=== PATIENT | male | born 1940 | race Caucasian/White ===

== ENCOUNTER 2017-01-22 16:18 | Inpatient (IN) | payer MEDICARE, BC ==
[~2017-01-22] VITALS: Ht 165.1 cm; Wt 62.0 kg
[2017-01-22] VITALS (13 sets, daily range): BP systolic 120–176; BP diastolic 59–84; PULSE 53–74; RESP 15–18; TEMP 98.3–98.9; O2SAT 95–99
[~2017-01-22 16:18] MED LIST: ALLO300T2 PO; ATOR20TA42 PO; COLC1TAB7 PO; GABA300C3 PO; GLUCTAB PO; LISI-360 PO; MAGN250T13 PO; PIOG15 PO; RIVA20 PO; TYLE3 PO; VERA120T3 PO; VITA100020 IM; VITA20002 PO
[2017-01-22] MEDS ORDERED: VERA120T3 PO (16:55)
[2017-01-22] MEDS ORDERED: LISI-515 PO (16:55)
[2017-01-22] MEDS ORDERED: XARE20TA PO (16:55)
[2017-01-22] MEDS ORDERED: LIPI20TA PO (16:55)
[2017-01-22] MEDS ORDERED: METF1000 PO (16:55)
[2017-01-22] MEDS ORDERED: ALLO300T2 PO (16:55)
[2017-01-22] MEDS ORDERED: ACET300T49 PO (16:55)
[2017-01-22] MEDS ORDERED: ACTO15TA22 PO (16:55)
[2017-01-22] MEDS ORDERED: SODIUM CHLORIDE 0.9% FLUSH 10 ML FLUSH IVF PRN (17:15)
--- NOTE | 2017-01-22 17:31 | PD ---
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 Patient states that he experienced an episode of kaleidoscopic vision on January 10. He states this lasted a few moments and then resolved. 2 days later he began to have a "terrible" global headache that resolved spontaneously. Over the course in the last few days the patient states that he has a headache with accompanying nausea. He also reports developing a tremor in the right hand having some difficulties with gait. He denies recent trauma. On presentation he endorses denies 8/10 frontal headache. He denies vision changes, dizziness. He states that he saw his PCP, Dr. Moeller and had an outpatient MRI today. This revealed bilateral subdural hematomas. He was instructed to report to the ED for further evaluation. PFSH Past Medical History Hx Anticoagulant Therapy: Yes (XARELTO) Cancer: No Cardiovascular Problems: Yes (enlarged left atrium left ventricle hypertrophy) High Cholesterol: Yes Cerebrovascular Accident: Yes (TIA) Diabetes: Yes Patient Takes Glucophage: Yes (METFORMIN) Diminished Hearing: Yes ([place]) Endocrine: Yes Gout: Yes Genitourinary: Yes (mildly enlarged prostate) Headaches: Yes Hepatitis: No Hiatal Hernia: No Hypertension: Yes Immune Disorder: No Medical other: Yes (GOUT ; TIA) Musculoskeletal: Yes (arhtritis neck and back problems) Neurologic: Yes (stroke 2011) Psychiatric: No Reproductive: No Respiratory: No Thyroid Disease: No Past Surgical History Abdominal Surgery: Yes (raquel hernia repair) Appendectomy: Yes Body Medical Devices: titanium plate ,hardware in the neck Eye Surgery: Yes (raquel cataract removal) Neurologic Surgery: Yes (ANTERIOR CERVCIAL FUSION ) Other Surgery: Yes (NECK DISCECTOMY CA/5 2004 AND C3/4 2014) Social History Alcohol Use: No Tobacco Use: No Substance Use: No Allergies-Medications (Allergen,Severity, Reaction): Coded Allergies: aspirin (Unverified Allergy, Severe, nausea and vomiting, 01/22/17) cyclobenzaprine (Unverified Allergy, Severe, hives, 01/22/17) oxycodone (Unverified Allergy, Unknown, 01/22/17) pt states no reaction to percocet Reported Meds & Prescriptions Reported Meds & Active Scripts Active Reported Xarelto (Rivaroxaban) 20 Mg Tab 20 Mg PO DAILY Verapamil (Verapamil HCl) 120 Mg Tab 120 Mg PO DAILY Metformin (Metformin HCl) 1,000 Mg Tab 1,000 Mg PO BIDPC Lisinopril 20 Mg Tab 20 Mg PO DAILY Lipitor (Atorvastatin Calcium) 20 Mg Tab 20 Mg PO HS Allopurinol 300 Mg Tab 300 Mg PO DAILY Actos (Pioglitazone HCl) 15 Mg Tab 15 Mg PO DAILY Acetaminophen-Codeine 300-15 mg Tab 1-2 Tab PO Q6H PRN Review of Systems Except as stated in HPI: all other systems reviewed are Neg Physical Exam Narrative GENERAL: Well-nourished, well-developed pleasant white male with a somewhat flat affect in no acute distress. SKIN: Focused skin assessment warm/dry. HEAD: Normocephalic. Atraumatic. EYES: No scleral icterus. No injection or drainage. PERRLA. EOMI. NECK: Supple, trachea midline. No JVD or lymphadenopathy. CARDIOVASCULAR: Regular rate and rhythm without murmurs, gallops, or rubs. RESPIRATORY: Breath sounds clear and equal bilaterally. No accessory muscle use. GASTROINTESTINAL: Abdomen soft, non-tender, nondistended. Active bowel sounds. MUSCULOSKELETAL: No cyanosis, or edema. NEUROLOGICAL: Awake and alert. Cranial nerves II through XII intact. Motor and sensory grossly within normal limits. Five out of 5 muscle strength in all muscle groups. Normal speech. Pclk-vs-[id number] testing negative bilaterally. No pronator drift. The patient does have a resting tremor in the right hand that resolves with movement. BACK: Nontender without obvious deformity. No CVA tenderness. Data Data Last Documented VS Vital Signs Date Time Temp Pulse Resp B/P (MAP) Pulse Ox O2 Delivery O2 Flow Rate FiO2 01/22/17 18:00 65 18 142/84 (103) 96 Room Air 01/22/17 16:19 98.9 Orders Orders Electrocardiogram (01/22/17 17:05) Prothrombin Time / Inr (Pt) (01/22/17 17:05) Act Partial Throm Time (Ptt) (01/22/17 17:05) Complete Blood Count With Diff (01/22/17 17:05) Comprehensive Metabolic Panel (01/22/17 17:05) Troponin I (01/22/17 17:05) Urinalysis - C+S If Indicated (01/22/17 17:05) Ct Brain W/O Iv Contrast(Rout) (01/22/17 17:05) Chest, Single Ap (01/22/17 17:05) Ecg Monitoring (01/22/17 17:05) Iv Access Insert/Monitor (01/22/17 17:05) Oximetry (01/22/17 17:05) Sodium Chloride 0.9% Flush (Ns Flush) (01/22/17 17:15) Acetaminophen (Tylenol) (01/22/17 17:45) Ondansetron Inj (Zofran Inj) (01/22/17 17:45) Sodium Chlor 0.9% 1000 Ml Inj (Ns 1000 M (01/22/17 18:45) Consult Neurosurgery (01/22/17 ) Labs Laboratory Tests Test 01/22/17 12:31 01/22/17 17:15 Urine Color YELLOW Urine Turbidity CLEAR Urine pH 5.0 Urine Specific [place] 1.022 Urine Protein NEG mg/dL Urine Glucose (UA) NEG mg/dL Urine Ketones TRACE mg/dL Urine Occult Blood NEG Urine Nitrite NEG Urine Bilirubin NEG Urine Urobilinogen LESS THAN 2.0 MG/DL Urine Leukocyte Esterase NEG Urine Hyaline Casts 1 /lpf Microscopic Urinalysis Comment CATH-CULT NOT IND White Blood Count 20.2 TH/MM3 Red Blood Count 4.47 MIL/MM3 Hemoglobin 13.6 GM/DL Hematocrit 40.2 % Mean Corpuscular Volume 90.0 FL Mean Corpuscular Hemoglobin 30.5 PG Mean Corpuscular Hemoglobin Concent 33.9 % Red Cell Distribution Width 14.4 % Platelet Count 144 TH/MM3 Mean Platelet Volume 6.8 FL Neutrophils (%) (Auto) 30.4 % Lymphocytes (%) (Auto) 62.0 % Monocytes (%) (Auto) 6.8 % Eosinophils (%) (Auto) 0.6 % Basophils (%) (Auto) 0.2 % Neutrophils # (Auto) 6.1 TH/MM3 Lymphocytes # (Auto) 12.5 TH/MM3 Monocytes # (Auto) 1.4 TH/MM3 Eosinophils # (Auto) 0.1 TH/MM3 Basophils # (Auto) 0.0 TH/MM3 CBC Comment AUTO DIFF Prothrombin Time 11.9 SEC Prothromb Time International Ratio 1.1 RATIO Activated Partial Thromboplast Time 24.0 SEC Blood Urea Nitrogen 28 MG/DL Creatinine 1.21 MG/DL Random Glucose 123 MG/DL Total Protein 6.9 GM/DL Albumin 4.1 GM/DL Calcium Level 9.3 MG/DL Alkaline Phosphatase 66 U/L Aspartate Amino Transf (AST/SGOT) 15 U/L Alanine Aminotransferase (ALT/SGPT) 18 U/L Total Bilirubin 0.4 MG/DL Sodium Level 136 MEQ/L Potassium Level 4.3 MEQ/L Chloride Level 102 MEQ/L Carbon Dioxide Level 21.6 MEQ/L Anion Gap 12 MEQ/L Estimat Glomerular Filtration Rate 58 ML/MIN Troponin I LESS THAN 0.02 NG/ML MDM Medical Decision Making Medical Screen Exam Complete: Yes Emergency Medical Condition: Yes Differential Diagnosis TIA versus CVA versus ICH versus metabolic derangement versus other Narrative Course 76-year-old male with PMH of DM, HTN, CVA, HLD, 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 Patient states that he experienced an episode of kaleidoscopic vision on January 10. He states this lasted a few moments and then resolved. 2 days later he began to have a "terrible" global headache that resolved spontaneously. Over the course in the last few days the patient states that he has a 8/10 frontal headache with accompanying nausea. He also reports developing a tremor in the right hand and having some difficulties with gait. He denies trauma, vision changes, dizziness. He states that he saw his PCP and had an outpatient MRI today. This revealed bilateral subdural hematomas. He was instructed to report to the ED for further evaluation. Vitals reviewed. On exam the patient is alert and oriented. There are no focal neuro deficits. He does have a resting tremor in the right hand that resolves with movement. Chest clear to auscultation bilaterally. No lower extremity edema. IV was established. Patient was administered 650 mg Tylenol, 4 mg Zofran by mouth and 1 L normal saline IV. EKG rate 67, sinus rhythm with PVCs. AR interval 184, QRS 98, QTC 423 ms. Normal axis. Nonspecific T-wave abnormality. Reviewed by Dr. Warren Cardiac enzymes negative 1. CXR with hypoinflation and minimal bilateral basilar atelectasis. CBC: WBC 20.2, 62% lymphocytes. (Patient's reports last white count was 18.) Hemoglobin 13.6. Platelets 144. INR 1.1. CMP: BUN 28, creatinine 1.21 UA: No culture indicated. CT brain: Acute on chronic bilateral subdural hematomas observed. No significant volume of acute blood overlies the right temporal lobe. The acute component measures 3 mm in thickness. A more chronic subdural collections are seen more anteriorly overlying the frontal lobes and measure 13 mm on the right and 14 mm on the left in thickness. There is some underlying atrophy. No mass or acute infarction. Ventricles remain patent. The calvarium is intact. I spoke with Dr. Akins who does not think surgical intervention is needed at this time. We'll admit the patient to the ICU under the medicine service. I spoke with the patient and his regarding the results of the workup and they are agreeable to admission. The patient's son-in-law is an emergency room physician in [place] and the patient would like to keep him apprised of any developments. Dr. Aj Castro phone: [phone]. Dr. Warren spoke with Dr. Castro by phone regarding the findings in the ED. I spoke with Dr. Calvin who agrees to accept the patient to the medicine service. Please see medicine notes for disposition. Park Bonilla Jan 22, 2017 17:31
--- NOTE | 2017-01-22 17:38 | RADRPT ---
EXAM DATE/TIME: 01/22/2017 17:14 [facility] COMPARISON: No previous studies available for comparison. INDICATIONS : Syncope. Weakness. MEDICAL HISTORY : None. SURGICAL HISTORY : None. ENCOUNTER: Initial ACUITY: 1 day PAIN SCORE: 6/10 LOCATION: Bilateral chest FINDINGS: A single view of the chest demonstrates the lungs to be symmetrically, but under aerated without evid ence of mass, infiltrate or effusion. Minimal bibasilar atelectatic changes The cardiomediastinal co ntours are unremarkable. Osseous structures are intact with some degenerative spurring of the dorsal spine. CONCLUSION: Hypoinflation with minimal bibasilar atelectatic changes. Maury Pizano MD on January 22, 2017 at 17:36 Board Certified Radiologist. This report was verified electronically.
[2017-01-22] MEDS ORDERED: ONDANSETRON HCL 4 MG/2 ML VIAL IV PUSH ONE (17:45)
[2017-01-22] MEDS ORDERED: ACETAMINOPHEN 325 MG TAB PO ONE (17:45)
[2017-01-22 18:04] LABS: AUTOMATED NEUTROPHIL # 6.1 TH/MM3 (1.8-7.7); BASOPHIL % 0.2 % (0.0-2.0); EOSINOPHIL # 0.1 TH/MM3 (0-0.4); EOSINOPHIL % 0.6 % (0.0-4.0); HEMATOCRIT 40.2 % (39.0-51.0); LYMPHOCYTE # 12.5 TH/MM3 (1.0-4.8); MEAN CORPUSCULAR HEMOGLOBIN 30.5 PG (27.0-34.0); MEAN CORPUSCULAR HGB CONC 33.9 % (32.0-36.0); MONO % 6.8 % (0.0-8.0); NEUT % 30.4 % (16.0-70.0); PLATELET COUNT 144 TH/MM3 (150-450); RED BLOOD COUNT 4.47 MIL/MM3 (4.50-5.90); RED CELL DISTRIBUTION WIDTH 14.4 % (11.6-17.2); WHITE BLOOD COUNT 20.2 TH/MM3 (4.0-11.0)
[2017-01-22 18:08] LABS: BLOOD, URINE NEG (NEG); GLUCOSE,URINE NEG (NEG); HYALINE CAST, URINE 1 /lpf (RARE); KETONE, URINE TRACE mg/dL (NEG); NITRITE,URINE NEG (NEG); URINE COLOR YELLOW (YELLW/STRAW)
--- NOTE | 2017-01-22 18:08 | RADRPT ---
EXAM DATE/TIME: 01/22/2017 17:45 This report includes an Addendum and supersedes previous reports for this exam. [facility] COMPARISON: No previous studies available for comparison. INDICATIONS : Subdural hematoma per outpatient MRI; patient complains of headache. RADIATION DOSE: 56.35 CTDIvol (mGy) MEDICAL HISTORY : Cerebrovascular disease. Cardiovascular disease Hypertension.Diabetes SURGICAL HISTORY : Angioplasty. Hernia repair ENCOUNTER: Initial ACUITY: 1 day PAIN SCALE: 6/10 LOCATION: cranial TECHNIQUE: Multiple contiguous axial images were obtained of the head. Using automated exposure control and adj ustment of the mA and/or kV according to patient size, radiation dose was kept as low as reasonably a chievable to obtain optimal diagnostic quality images. DICOM format image data is available electro nically for review and comparison. FINDINGS: Acute on chronic bilateral subdural hematomas observed. No significant volume of acute blood overlies the right temporal lobe. The acute component measures 3 mm in thickness. A more chronic subdural col lections are seen more anteriorly overlying the frontal lobes and measure 13 mm on the right and 40 m m on the left in thickness. There is some underlying atrophy. No mass or acute infarction. Ventricles remain patent. The calvarium is intact. CONCLUSION: 1. Acute on chronic bilateral subdural hematomas as detailed above. No midline shift or herniation. Joel Maciel Jr., MD on January 22, 2017 at 18:04 Board Certified Radiologist. This report was verified electronically. ADDENDUM: There is a typographical error in the above report. The chronic subdural collection on the left measu res 14 mm not 40 mm. oJel Maciel Jr., MD on January 22, 2017 at 19:22 Board Certified Radiologist. This report was verified electronically.
[2017-01-22 18:12] LABS: INTERNATIONAL NORMALIZED RATIO 1.1 RATIO; PROTHROMBIN TIME - PATIENT 11.9 SEC (9.8-11.6)
[2017-01-22 18:13] LABS: HEMO FLAGS AUTO DIFF
[2017-01-22 18:15] LABS: COMMENT (UR) CATH-CULT NOT IND; CULTURE IF INDICATED CATH CULTURE NOT IND
[2017-01-22 18:26] LABS: ALT (GPT) 18 U/L (12-78); ANION GAP 12 MEQ/L (5-15); AST (GOT) 15 U/L (15-37); BICARBONATE 21.6 MEQ/L (21.0-32.0); BLOOD UREA NITROGEN 28 MG/DL (7-18); CHLORIDE 102 MEQ/L (98-107); GLOMERULAR FILTRATION RATE 58 ML/MIN (>89); POTASSIUM 4.3 MEQ/L (3.5-5.1); SODIUM (NA) 136 MEQ/L (136-145)
[2017-01-22 18:31] LABS: ALKALINE PHOSPHATASE 66 U/L (45-117); TOTAL BILIRUBIN ADULT 0.4 MG/DL (0.2-1.0)
[2017-01-22] MEDS ORDERED: SODIUM CHLOR 0.9% 1000 ML INJ 1,000 ML IV ONE (18:45)
[2017-01-22] MEDS ORDERED: SODIUM CHLORIDE 0.9% FLUSH 10 ML FLUSH IV FLUSH PRN ×2 (19:00→19:30)
[2017-01-22] MEDS ORDERED: NALOXONE HCL 0.4 MG/ML AMP IV PUSH PRN (19:00)
[2017-01-22] MEDS ORDERED: MISCELLANEOUS NURSING INFORMATION XX SCH (19:30)
[2017-01-22] MEDS ORDERED: GLUCAGON 1 MG/ML VIAL OTHER PRN (19:30)
[2017-01-22] MEDS ORDERED: CHLORHEXIDINE GLUCONATE 2 % 1 PACK (2 CLOTHS) TOP PRN (19:30)
[2017-01-22] MEDS ORDERED: DEXTROSE 50% IN WATER 50 ML VIAL(D50) IV PUSH PRN (19:30)
[2017-01-22] MEDS ORDERED: ACETAMINOPHEN 325 MG TAB PO PRN (19:30)
[2017-01-22] MEDS ORDERED: BISACODYL 10 MG SUPP RECTAL PRN (19:30)
[2017-01-22] MEDS ORDERED: MAGNESIUM HYDROXIDE SUSP 30 ML CUP PO PRN (19:30)
[2017-01-22] MEDS ORDERED: LACTULOSE SYRUP 20 GM/30 ML CUP PO PRN (19:30)
--- NOTE | 2017-01-22 19:31 | HHI.HP ---
HPI Service [facility] Primary Care Physician Pedro Moeller MD Admission Diagnosis acute on chronic bilateral subdural hematoma Diagnoses: (1) Subdural hematoma Diagnosis: Principal (2) Thrombocytopenia Diagnosis: Principal (3) Leukocytosis Diagnosis: Principal (4) HTN (hypertension) Diagnosis: Principal (5) Dehydration Diagnosis: Principal (6) DM (diabetes mellitus) Diagnosis: Principal Travel History International Travel<30 Days: No Contact w/Intl Traveler <30 Da: No Traveled to Known Affected Are: No History of Present Illness This is a 76-year-old male with a PMH of HTN, DM, h/o CVA on Xarelto and CLL who was sent to the ER by PCP secondary to outpatient imaging showing bilateral Subdural Hematoma. Per , pt was recently started on antibiotics for Prostatitis, states Son is an ER physician and noted pt to be more confused today, therefore urged pt be seen by PCP. Reports chronic headache for several months, no nausea/vomiting or vision changes. On arrival, BP 136/78, HR 74, O2 sat 98% on RA, Afebrile. WBC 20.2. Platelets 144. GFR 58. BUN 28. INR 1.1. UA negative. CXR with hypoinflation. CT Head with acute on chronic spiral bilateral subdural hematomas, no midline shift or herniation. S/p eval by Dr. Akins w/ NxSx, hematomas amenable to drainage, however family would like to continue w/ conservative management at this time. Review of Systems Except as stated in HPI: all other systems reviewed are Neg ROS: 14 point review of systems otherwise negative. Past Family Social History Past Medical History PMH: HTN, DM, h/o CVA on Xarelto and CLL Past Surgical History PAST SURGICAL HISTORY: Bilateral Hernia Repair, Bilateral Cataract Surgery, Anterior Cervical fusion Allergies: Coded Allergies: aspirin (Unverified Allergy, Severe, nausea and vomiting, 01/22/17) cyclobenzaprine (Unverified Allergy, Severe, hives, 01/22/17) oxycodone (Unverified Allergy, Unknown, 01/22/17) pt states no reaction to percocet Family History PAST FAMILY HISTORY: Reviewed. No h/o DM or CAD Social History PAST SOCIAL HISTORY: Negative for all, tobacco or drugs. Physical Exam Vital Signs Vital Signs Date Time Temp Pulse Resp B/P (MAP) Pulse Ox O2 Delivery O2 Flow Rate FiO2 01/22/17 18:00 65 18 142/84 (103) 96 Room Air 01/22/17 17:28 99 Room Air 01/22/17 16:45 66 18 97 Room Air 01/22/17 16:19 98.9 67 15 136/73 (94) 98 Physical Exam PE: GENERAL: Very pleasant middle-aged white male in no acute distress. at bedside. HEENT: PERRLA, EOMI. No scleral icterus or conjunctival pallor. No lid lag or facial droop. CARDIOVASCULAR: Regular rate and rhythm. No obvious murmurs to auscultation. No chest tenderness to palpation. RESPIRATORY: No obvious rhonchi or wheezing. Clear to auscultation. Breath sounds equal bilaterally. GASTROINTESTINAL: Abdomen soft, non-tender, nondistended. BS normal. MUSCULOSKELETAL: Extremities without clubbing, cyanosis, or edema. No obvious deformities. NEUROLOGICAL: Awake, alert and oriented x4. No focal neurologic deficits. Moving both upper and lower extremities spontaneously. Laboratory Laboratory Tests Test 01/22/17 12:31 01/22/17 17:15 Urine Color YELLOW Urine Turbidity CLEAR Urine pH 5.0 Urine Specific [place] 1.022 Urine Protein NEG Urine Glucose (UA) NEG Urine Ketones TRACE Urine Occult Blood NEG Urine Nitrite NEG Urine Bilirubin NEG Urine Urobilinogen LESS THAN 2.0 Urine Leukocyte Esterase NEG Urine Hyaline Casts 1 Microscopic Urinalysis Comment CATH-CULT NOT IND White Blood Count 20.2 Red Blood Count 4.47 Hemoglobin 13.6 Hematocrit 40.2 Mean Corpuscular Volume 90.0 Mean Corpuscular Hemoglobin 30.5 Mean Corpuscular Hemoglobin Concent 33.9 Red Cell Distribution Width 14.4 Platelet Count 144 Mean Platelet Volume 6.8 Neutrophils (%) (Auto) 30.4 Lymphocytes (%) (Auto) 62.0 Monocytes (%) (Auto) 6.8 Eosinophils (%) (Auto) 0.6 Basophils (%) (Auto) 0.2 Neutrophils # (Auto) 6.1 Lymphocytes # (Auto) 12.5 Monocytes # (Auto) 1.4 Eosinophils # (Auto) 0.1 Basophils # (Auto) 0.0 CBC Comment AUTO DIFF Prothrombin Time 11.9 Prothromb Time International Ratio 1.1 Activated Partial Thromboplast Time 24.0 Blood Urea Nitrogen 28 Creatinine 1.21 Random Glucose 123 Total Protein 6.9 Albumin 4.1 Calcium Level 9.3 Alkaline Phosphatase 66 Aspartate Amino Transf (AST/SGOT) 15 Alanine Aminotransferase (ALT/SGPT) 18 Total Bilirubin 0.4 Sodium Level 136 Potassium Level 4.3 Chloride Level 102 Carbon Dioxide Level 21.6 Anion Gap 12 Estimat Glomerular Filtration Rate 58 Troponin I LESS THAN 0.02 Result Diagram: 01/22/17171401/22/171714 Caprincarlos VTE Risk Assessment Caprini VTE Risk Assessment: No/Low Risk (score <= 1) VTE Pharm Contraindication: Hemorrhage Caprini Risk Assessment Model Point Value = 1 Point Value = 2 Point Value = 3 Point Value = 5 Age 41-60 Minor surgery BMI > 25 kg/m2 Swollen legs Varicose veins or History of unexplained or recurrent spontaneous Oral contraceptives or hormone replacement Sepsis (< 1 month) Serious lung disease, including pneumonia (< 1 month) Abnormal pulmonary function Acute myocardial infarction Congestive heart failure (< 1 month) History of inflammatory bowel disease Medical patient at bed rest Age 61-74 Arthroscopic surgery Major open surgery (> 45 min) Laparoscopic surgery (> 45 min) Malignancy Confined to bed (> 72 hours) Immobilizing plaster cast Central venous access Age >= 75 History of VTE Family history of VTE Factor V Leiden Prothrombin [id number] Lupus anticoagulant Anticardiolipin antibodies Elevated serum homocysteine Heparin-induced thrombocytopenia Other congenital or acquired thrombophilia Stroke (< 1 month) Elective arthroplasty Hip, pelvis, or leg fracture Acute spinal cord injury (< 1 month) Prophylaxis Regimen Total Risk Factor Score Risk Level Prophylaxis Regimen 0-1 Low Early ambulation 2 Moderate Order ONE of the following: *Sequential Compression Device (SCD) *Heparin 5000 units SQ BID 3-4 Higher Order ONE of the following medications: *Heparin 5000 units SQ TID *Enoxaparin/Lovenox 40 mg SQ daily (WT < 150 kg, CrCl > 30 mL/min) *Enoxaparin/Lovenox 30 mg SQ daily (WT < 150 kg, CrCl > 10-29 mL/min) *Enoxaparin/Lovenox 30 mg SQ BID (WT < 150 kg, CrCl > 30 mL/min) AND/OR *Sequential Compression Device (SCD) 5 or more Highest Order ONE of the following medications: *Heparin 5000 units SQ TID (Preferred with Epidurals) *Enoxaparin/Lovenox 40 mg SQ daily (WT < 150 kg, CrCl > 30 mL/min) *Enoxaparin/Lovenox 30 mg SQ daily (WT < 150 kg, CrCl > 10-29 mL/min) *Enoxaparin/Lovenox 30 mg SQ BID (WT < 150 kg, CrCl > 30 mL/min) AND *Sequential Compression Device (SCD) Assessment and Plan Problem List: (1) Subdural hematoma ICD Code: I62.00 - Nontraumatic subdural hemorrhage, unspecified (2) Thrombocytopenia ICD Code: D69.6 - Thrombocytopenia, unspecified (3) Leukocytosis ICD Code: D72.829 - Elevated white blood cell count, unspecified (4) Dehydration ICD Code: E86.0 - Dehydration (5) HTN (hypertension) ICD Code: I10 - Essential (primary) hypertension (6) DM (diabetes mellitus) ICD Code: E11.9 - Type 2 diabetes mellitus without complications Assessment and Plan A/P: 1. Subdural Hematoma: Bilateral. Subacute/chronic. Spontaneous, no h/o trauma/injury. On Xarelto for h/o CVA. S/p eval by Dr. Akins w/ NxSx, hematomas amenable to drainage, however pt/ wish to discuss intervention w/ Son who is ER physician, conservative management for now. Admit to ICU for close monitoring, Neuro Check q2h. Hold Xarelto. 1u FFP. Repeat CT Head in am. 2. HTN: Goal BP <150 systolic in light of ICH. S/p Lopressor in ER w/ significant bradycardia, Hydralazine prn for Systolic >150 3. Leukocytosis: WBC 20.2, no previous labs for comparison, no signs of infection, likely secondary to recent diagnosis of CLL combined w/ ICH 4. Dehydration: GFR 58, BUN 28. IVF for hydration, repeat labs in am. 5. Thrombocytopenia: Platelets 144, no previous labs for comparison, in light of ICH and anticoagulation will give FFP as above. Repeat labs in am. 6. DM: Sliding scale w/ Accu-Cheks. 7. DVT Prophylaxis: Pharmacologic contraindication secondary to ICH 8. Social work for d/c planning as needed. 9. Case discussed w/ ER physician at length. Physician Certification 2 Midnight Certification Type: Admission for Inpatient Services Order for Inpatient Services The services are ordered in accordance with Medicare regulations or non- Medicare payer requirements, as applicable. In the case of services not specified as inpatient-only, they are appropriately provided as inpatient services in accordance with the 2-midnight benchmark. Estimated LOS (days): 2 days is the estimated time the patient will need to remain in the hospital, assuming treatment plan goals are met and no additional complications. Post-Hospital Plan: Not yet determined Beth White MD Jan 22, 2017 19:31
[2017-01-22 19:40] LABS: NEUTROPHIL # MANUAL DIFF 8.1 TH/MM3 (1.8-7.7); POLYS (SEG NEUTROPHILS) 39 % (16-70); PROMYELOCYTES 1 % (0-0); WBC DIFF SAMPLE 100
[2017-01-22 19:41] LABS: PLATELET ESTIMATE SMEAR LOW (NORMAL); PLATELET MORPHOLOGY NORMAL (NORMAL); SCAN/DIFF FINAL DIFF MANUAL
[2017-01-22] MEDS ORDERED: METOPROLOL TARTRATE 5 MG/5 ML VIAL IV PUSH PRN (19:45)
[2017-01-22] MEDS ORDERED: METOPROLOL TARTRATE 5 MG/5 ML VIAL IV PUSH ONE (19:45)
--- NOTE | 2017-01-22 20:04 | MB ---
cc: CHRIS HU M.D. DATE OF CONSULTATION: 01/22/2017. REQUESTING PHYSICIAN: Dr. Calvin. HISTORY OF PRESENT ILLNESS: This is a 76-year-old gentleman with significant past medical history of diabetes, hypertension, recent CVA who has been on Xarelto since the diagnosis of the CVA. He has a longstanding history of chronic headaches but over the past couple weeks he has noted worsening of his headache which is now more global than cervical-occipital. 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 Significant effacement of the frontal parenchyma but no midline shift. Since admission to the emergency room, the patient notes his headache has improved with medication. Other than headache, he has also noted some scintillating visual changes and dizziness. No motor or sensory loss or dysfunction in the upper or lower extremities. PAST MEDICAL HISTORY: The patient's past medical history is as above: 1. Diabetes. 2. Hypertension. 3. CVA. 4. Hyperlipidemia. MEDICATIONS: 1. Xarelto. 2. Verapamil. 3. Metformin. 4. Lisinopril. 5. Lipitor. 6. Allopurinol. 7. Actos. 8. Lortab. ALLERGIES: 1. CYCLOBENZAPRINE. 2. OXYCODONE. 3. ASPIRIN. HABITS: The patient does not smoke. He does not use alcohol significantly. REVIEW OF SYSTEMS: Pertinent as stated in the history of present illness and otherwise negative. PHYSICAL EXAMINATION: GENERAL: A well-developed, well-nourished gentleman who is awake, alert and in no acute distress. HEAD, EYES, EARS, NOSE, THROAT: Head is normocephalic and atraumatic. Pupils equal, round and reactive to light. Extraocular movements are intact. NECK: The neck is supple. Full range of motion. No posterior tenderness. NEUROLOGICAL EXAMINATION: The patient is alert, awake, oriented times three. Mental status is normal. Cranial nerves II through XII are intact. Motor function is 5/5 upper and lower extremities without drift. Sensory intact to primary modalities. Reflexes are hypoactive but symmetric. Gait was not tested. ASSESSMENT: Bilateral chronic subdural hematomas as complication of Xarelto use. PLAN: 1. Xarelto will be discontinued and the patient will be admitted to the intensive care unit for observation. 2. I spoke with the patient and his and have indicated to them that it is likely he will need rachael hole drainage of the collections as they are fairly large; however, we can give the collections some time to possibly resolve if that is their wish. For now, they wish to proceed conservatively. Will follow the patient closely. MD FRANSICO Ruiz/SHAHRZAD /7:30 PM /7:58 PM
[2017-01-22] MEDS ORDERED: SODIUM CHLOR 0.9% 250 ML INJ 250 ML IV ONE (20:45)
[2017-01-22] MEDS: hydrALAZINE HCL 20 MG/ML VIAL IV PUSH PRN (20:56)
[2017-01-22] MEDS ORDERED: SODIUM CHLORIDE 0.9% FLUSH 10 ML FLUSH IV FLUSH SCH (21:00)
[2017-01-22] MEDS: INSULIN ASPART SUPPLEMENTAL SCALE SQ SCH (21:00)
[2017-01-22] MEDS: DOCUSATE SODIUM 50 MG/SENNA 8.6 MG TAB PO SCH (21:37)
[2017-01-22] MEDS: SODIUM CHLORIDE 0.9% FLUSH 10 ML FLUSH IV FLUSH SCH (21:37)
[2017-01-22] MEDS: ATORVASTATIN 20 MG TAB PO SCH (21:37)
[2017-01-22] MEDS: ONDANSETRON HCL 4 MG/2 ML VIAL IVP PRN (21:45)
[2017-01-22] MEDS: MORPHINE SULFATE 4 MG/ML INJ IV PUSH PRN (21:45)
[2017-01-23] VITALS (13 sets, daily range): BP systolic 102–146; BP diastolic 55–69; PULSE 43–75; RESP 13–19; TEMP 97.2–98.3; O2SAT 96–97
[2017-01-23 06:07] LABS: INTERNATIONAL NORMALIZED RATIO 1.1 RATIO; PROTHROMBIN TIME - PATIENT 12.6 SEC (9.8-11.6)
[2017-01-23 06:16] LABS: ALT (GPT) 18 U/L (12-78); ANION GAP 8 MEQ/L (5-15); AST (GOT) 14 U/L (15-37); BICARBONATE 25.8 MEQ/L (21.0-32.0); BLOOD UREA NITROGEN 22 MG/DL (7-18); CHLORIDE 104 MEQ/L (98-107); GLOMERULAR FILTRATION RATE 73 ML/MIN (>89); POTASSIUM 3.9 MEQ/L (3.5-5.1); SODIUM (NA) 138 MEQ/L (136-145)
--- NOTE | 2017-01-23 06:18 | RADRPT ---
EXAM DATE/TIME: 01/23/2017 05:59 [facility] COMPARISON: CT BRAIN W/O CONTRAST, January 22, 2017, 17:45. INDICATIONS : Follow up subdural hematomas. RADIATION DOSE: 56.35 CTDIvol (mGy) MEDICAL HISTORY : Cerebrovascular disease. Cardiovascular disease Hypertension.Diabetes SURGICAL HISTORY : Hernia repair ENCOUNTER: Subsequent ACUITY: 1 day PAIN SCALE: Non-responsive LOCATION: cranial TECHNIQUE: Multiple contiguous axial images were obtained of the head. Using automated exposure control and adj ustment of the mA and/or kV according to patient size, radiation dose was kept as low as reasonably a chievable to obtain optimal diagnostic quality images. DICOM format image data is available electro nically for review and comparison. FINDINGS: Bifrontal subdural hygromas are unchanged measuring maximally 10 mm in thickness. There is no signifi cant mass effect or midline shift. There is hyperdensity layering in the dependent portion of the col lections characteristic of acute hemorrhage. No intraparenchymal contusion is identified. Posterior f cristal structures are unremarkable. CONCLUSION: 1. Stable acute and chronic subdural hematomas. Milad Anaya MD on January 23, 2017 at 6:14 Board Certified Radiologist. This report was verified electronically.
[2017-01-23 06:19] LABS: ALKALINE PHOSPHATASE 57 U/L (45-117); TOTAL BILIRUBIN ADULT 0.5 MG/DL (0.2-1.0)
[2017-01-23 06:22] LABS: HEMATOCRIT 35.8 % (39.0-51.0); MEAN CELL VOLUME 88.9 FL (80.0-100.0); MEAN CORPUSCULAR HEMOGLOBIN 30.6 PG (27.0-34.0); MEAN CORPUSCULAR HGB CONC 34.4 % (32.0-36.0); PLATELET COUNT 135 TH/MM3 (150-450); RED BLOOD COUNT 4.02 MIL/MM3 (4.50-5.90); RED CELL DISTRIBUTION WIDTH 14.5 % (11.6-17.2); WHITE BLOOD COUNT 16.2 TH/MM3 (4.0-11.0)
[2017-01-23 06:57] LABS: HEMO FLAGS AUTO DIFF
[2017-01-23] MEDS: INSULIN ASPART SUPPLEMENTAL SCALE SQ SCH ×4 (08:00→20:38)
--- NOTE | 2017-01-23 08:25 | HHI.PR ---
Subjective Remarks Follow up subdural hematoma, dehydration. The patient has no complaints at this time. Denies headache currently. No numbness/weakness/tingling of his extremities. No vision changes. No chest pain or dyspnea. Objective Vitals Vital Signs Date Time Temp Pulse Resp B/P (MAP) Pulse Ox O2 Delivery O2 Flow Rate FiO2 01/23/17 06:00 53 01/23/17 04:00 53 01/23/17 03:00 98.0 53 13 110/55 (73) 96 01/23/17 02:00 75 01/23/17 02:00 49 01/23/17 00:00 98.2 65 14 119/56 (77) 96 01/22/17 23:49 71 16 120/60 (80) 96 01/22/17 22:45 71 16 120/67 (84) 95 Room Air 01/22/17 22:31 98.6 70 16 126/64 95 01/22/17 22:18 98.6 74 16 131/62 95 01/22/17 22:06 73 16 159/74 (102) 95 Room Air 01/22/17 22:00 71 16 170/59 (96) 95 Room Air 01/22/17 21:07 98.3 74 16 163/78 (106) 97 Room Air 01/22/17 20:26 53 16 162/79 (106) 97 Room Air 01/22/17 20:15 62 16 165/79 (107) 98 Room Air 01/22/17 19:29 74 16 176/78 (110) 98 Room Air 01/22/17 18:00 65 18 142/84 (103) 96 Room Air 01/22/17 17:28 99 Room Air 01/22/17 16:45 66 18 97 Room Air 01/22/17 16:19 98.9 67 15 136/73 (94) 98 I/O 01/22/17 01/22/17 01/22/17 01/23/17 01/23/17 01/23/17 07:00 15:00 23:00 07:00 15:00 23:00 Intake Total 1259 ml Output Total 600 ml Balance 1259 ml -600 ml Intake IV Total 1025 ml FFP 209 ml Blood Product IV Normal Saline Flush 25 ml Output Urine Total 600 ml # Voids 1 2 Result Diagram: 01/23/1751901/23/17 0520 Imaging Last Impressions Head CT 01/23/17 0600 Signed Impressions: Service Date/Time: Monday, January 23, 2017 05:59 - CONCLUSION: 1. Stable acute and chronic subdural hematomas. Milad Anaya MD Chest X-Ray 01/22/17 1705 Signed Impressions: Service Date/Time: Sunday, January 22, 2017 17:14 - CONCLUSION: Hypoinflation with minimal bibasilar atelectatic changes. Maury Pizano MD Objective Remarks General: Elderly male in no acute distress. Heart: Regular rate and rhythm. No murmur. Lungs: Clear to auscultation bilaterally. No wheezes, rales, or rhonchi. Breathing is nonlabored. Abdomen: Soft, nontender, nondistended. Extremities: No lower extremity edema. SCDs. Psych: Alert and oriented. Procedures None Urinary Catheter: No Vascular Central Line Catheter: No A/P Problem List: (1) Subdural hematoma ICD Code: I62.00 - Nontraumatic subdural hemorrhage, unspecified (2) Thrombocytopenia ICD Code: D69.6 - Thrombocytopenia, unspecified (3) Leukocytosis ICD Code: D72.829 - Elevated white blood cell count, unspecified (4) Dehydration ICD Code: E86.0 - Dehydration (5) HTN (hypertension) ICD Code: I10 - Essential (primary) hypertension (6) DM (diabetes mellitus) ICD Code: E11.9 - Type 2 diabetes mellitus without complications Assessment and Plan 1. Subdural hematoma: Bilateral. Subacute/chronic. No history of trauma. Patient is on Xarelto for history of CVA. This is now on hold. Appreciate neurosurgery recommendations. The hematomas are amenable to drainage, but the patient and his wish to continue conservative management at this time. Monitor in ICU. Continue neuro checks. 2. Hypertension: Blood pressure is much improved today. Patient did receive Lopressor in the ER and developed significant bradycardia. Hydralazine as needed. Goal blood pressure less than 150 systolic. 3. Dehydration: Improving. Restart IV fluids. Monitor BUN and creatinine. 4. Leukocytosis: Likely secondary to recent diagnosis of CLL. 5. Thrombocytopenia: Monitor platelets. Patient was given 1 unit of FFP. 6. Diabetes mellitus: Monitor Accu-Cheks and cover sliding scale insulin. 7. DVT prophylaxis: SCDs. Chemical prophylaxis Indicated secondary to subdural hematoma. Ferny Palacios MD Jan 23, 2017 08:24
[2017-01-23] MEDS: NS + KCL 20 MEQ INJ 1,000 ML IV SCH ×2 (09:27→22:48)
[2017-01-23 09:38] LABS: NEUTROPHIL # MANUAL DIFF 5.8 TH/MM3 (1.8-7.7); POLYS (SEG NEUTROPHILS) 36 % (16-70); WBC DIFF SAMPLE 100
[2017-01-23 09:39] LABS: PLATELET ESTIMATE SMEAR LOW (NORMAL); PLATELET MORPHOLOGY NORMAL (NORMAL); SCAN/DIFF FINAL DIFF MANUAL; SMUDGE CELLS PRESENT PRESENT
[2017-01-23] MEDS: CHLORHEXIDINE GLUCONATE 2 % 1 PACK (2 CLOTHS) TOP SCH ×2 (09:44→23:56)
[2017-01-23] MEDS: VERAPAMIL HCL 120 MG TAB PO SCH (09:45)
[2017-01-23] MEDS: SODIUM CHLORIDE 0.9% FLUSH 10 ML FLUSH IV FLUSH SCH ×2 (09:45→20:39)
[2017-01-23] MEDS: DOCUSATE SODIUM 50 MG/SENNA 8.6 MG TAB PO SCH ×2 (09:45→20:25)
[2017-01-23] MEDS: LISINOPRIL 20 MG TAB PO SCH (09:45)
--- NOTE | 2017-01-23 10:12 | HHI.NSPN ---
History Interval History is awake alert sitting up in bed eating. Notes his headache is improved since yesterday. No new complaints. Exam Results Vital Signs Date Time Temp Pulse Resp B/P (MAP) Pulse Ox O2 Delivery O2 Flow Rate FiO2 01/23/17 06:00 53 01/23/17 03:00 98.0 13 110/55 (73) 96 01/22/17 22:45 Room Air Intake and Output 01/23/17 01/23/17 01/24/17 08:00 16:00 00:00 Output Total 600 ml Balance -600 ml Physical Examination Patient is alert and awake oriented 3. Speech is intact. Cranial nerves II- XII intact. Motor function 5 over 5 in the upper and lower extremities. Lab, Micro, Other Results Last Impressions Head CT 01/23/17 0600 Signed Impressions: Service Date/Time: Monday, January 23, 2017 05:59 - CONCLUSION: 1. Stable acute and chronic subdural hematomas. Milad Anaya MD Chest X-Ray 01/22/17 1705 Signed Impressions: Service Date/Time: Sunday, January 22, 2017 17:14 - CONCLUSION: Hypoinflation with minimal bibasilar atelectatic changes. Maury Pizano MD Medical Decision Making Impression and Plan Assessment: Bilateral chronic subdural hematomas, complication of Xarelto. Patient still uncertain if he wishes to undergo bur hole drainage of the chronic subdurals. Plan: Patient has opted for continued conservative treatment. We'll continue observation and repeat CT scan tomorrow morning to evaluate the collections. He will remain in the intensive care unit for close observation. Ariel Akins MD Jan 23, 2017 10:12
[2017-01-23] MEDS: ONDANSETRON HCL 4 MG/2 ML VIAL IVP PRN ×2 (11:18→17:25)
[2017-01-23] MEDS: MORPHINE SULFATE 4 MG/ML INJ IV PUSH PRN ×3 (11:18→23:10)
--- NOTE | 2017-01-23 12:44 | EKG ---
Date Performed: 01/22/2017 Time Performed: 17:42:26 PTAGE: 76 years EKG: Sinus rhythm WITH OCCASIONAL SUPRAVENTRICULAR PREMATURE COMPLEXES NONSPECIFIC T-WAVE ABNORMALITY BORDERLINE ECG C ompared to PREVIOUS TRACING , the PACs and nonspecific T-wave changes are new. PREVIOUS TRACIN 12.43 DOCTOR: Paulino Tsang Interpretating Date/Time 01/23/2017 12:42:30
[2017-01-23] MEDS: ATORVASTATIN 20 MG TAB PO SCH (20:25)
[2017-01-24] VITALS (11 sets, daily range): BP systolic 106–162; BP diastolic 60–80; PULSE 41–99; RESP 10–19; TEMP 97.8–98.1; O2SAT 94–98
[2017-01-24] MEDS: hydrALAZINE HCL 20 MG/ML VIAL IV PUSH PRN (01:38)
[2017-01-24] MEDS: MORPHINE SULFATE 4 MG/ML INJ IV PUSH PRN ×3 (01:38→22:08)
[2017-01-24] MEDS ORDERED: MORPHINE SULFATE 4 MG/ML INJ IV PUSH ONE (02:30)
[2017-01-24] MEDS: ONDANSETRON HCL 4 MG/2 ML VIAL IVP PRN (02:37)
[2017-01-24] MEDS: NS + KCL 20 MEQ INJ 1,000 ML IV SCH (04:54)
[2017-01-24 04:57] LABS: AUTOMATED NEUTROPHIL # 5.8 TH/MM3 (1.8-7.7); BASOPHIL % 0.3 % (0.0-2.0); EOSINOPHIL # 0.1 TH/MM3 (0-0.4); EOSINOPHIL % 0.7 % (0.0-4.0); HEMATOCRIT 37.6 % (39.0-51.0); LYMPH % 55.2 % (9.0-44.0); LYMPHOCYTE # 8.7 TH/MM3 (1.0-4.8); MEAN CELL VOLUME 90.2 FL (80.0-100.0); MEAN CORPUSCULAR HEMOGLOBIN 30.6 PG (27.0-34.0); MEAN CORPUSCULAR HGB CONC 33.9 % (32.0-36.0); MONO % 7.1 % (0.0-8.0); NEUT % 36.7 % (16.0-70.0); PLATELET COUNT 123 TH/MM3 (150-450); RED BLOOD COUNT 4.17 MIL/MM3 (4.50-5.90); RED CELL DISTRIBUTION WIDTH 14.4 % (11.6-17.2); WHITE BLOOD COUNT 15.8 TH/MM3 (4.0-11.0)
[2017-01-24 05:17] LABS: HEMO FLAGS AUTO DIFF
[2017-01-24 05:24] LABS: BICARBONATE 23.3 MEQ/L (21.0-32.0); MAGNESIUM 1.9 MG/DL (1.5-2.5)
--- NOTE | 2017-01-24 05:28 | RADRPT ---
EXAM DATE/TIME: 01/24/2017 04:38 [facility] COMPARISON: CT BRAIN W/O CONTRAST, January 23, 2017, 5:59. INDICATIONS : Follow up subdural hematoma. RADIATION DOSE: 32.76 CTDIvol (mGy) MEDICAL HISTORY : Cerebrovascular disease. Cardiovascular disease Hypertension.Diabetes SURGICAL HISTORY : Hernia repair. ENCOUNTER: Subsequent ACUITY: 2 days PAIN SCALE: Non-responsive LOCATION: cranial TECHNIQUE: Multiple contiguous axial images were obtained of the head. Using automated exposure control and adj ustment of the mA and/or kV according to patient size, radiation dose was kept as low as reasonably a chievable to obtain optimal diagnostic quality images. DICOM format image data is available electro nically for review and comparison. FINDINGS: There are stable bilateral subdural hematomas without mass effect or midline shift. No intraparenchym al contusion is identified. There is no evidence of acute infarct. Posterior fossa structures are unr emarkable. CONCLUSION: 1. Stable bilateral subdural hematomas Milad Anaya MD on January 24, 2017 at 5:25 Board Certified Radiologist. This report was verified electronically.
[2017-01-24 06:41] LABS: BANDS 1 % (0-6); BASOPHILS 1 % (0-2); EOSINOPHILS 1 % (0-4); METAMYELOCYTES 2 % (0-1); NEUTROPHIL # MANUAL DIFF 8.2 TH/MM3 (1.8-7.7); POLYS (SEG NEUTROPHILS) 49 % (16-70); WBC DIFF SAMPLE 100
[2017-01-24 06:42] LABS: PLATELET ESTIMATE SMEAR LOW (NORMAL); PLATELET MORPHOLOGY NORMAL (NORMAL); SCAN/DIFF FINAL DIFF MANUAL
[2017-01-24] MEDS: INSULIN ASPART SUPPLEMENTAL SCALE SQ SCH ×4 (08:00→21:00)
[2017-01-24] MEDS: VERAPAMIL HCL 120 MG TAB PO SCH (08:03)
[2017-01-24] MEDS: LISINOPRIL 20 MG TAB PO SCH (08:03)
[2017-01-24] MEDS: DOCUSATE SODIUM 50 MG/SENNA 8.6 MG TAB PO SCH ×2 (08:03→22:06)
[2017-01-24] MEDS: SODIUM CHLORIDE 0.9% FLUSH 10 ML FLUSH IV FLUSH SCH ×2 (08:03→21:00)
--- NOTE | 2017-01-24 09:05 | HHI.PR ---
Subjective Remarks Follow-up subdural hematoma, diabetes, hypertension. The patient is still having headaches, but states that it is improved compared to yesterday. Denies chest pain, dyspnea, nausea, vomiting. Has not had a bowel movement and is feeling constipated. Objective Vitals Vital Signs Date Time Temp Pulse Resp B/P (MAP) Pulse Ox O2 Delivery O2 Flow Rate FiO2 01/24/17 07:00 95 Room Air 01/24/17 06:00 52 01/24/17 04:58 14 01/24/17 04:00 56 01/24/17 04:00 98.0 65 13 140/63 (88) 95 01/24/17 02:54 11 01/24/17 02:22 13 01/24/17 02:22 13 01/24/17 02:00 53 01/24/17 00:00 41 01/24/17 00:00 97.8 41 10 130/60 (83) 98 01/23/17 22:00 43 01/23/17 20:00 97.2 46 19 146/69 (94) 96 01/23/17 20:00 46 01/23/17 19:00 96 Room Air 01/23/17 18:00 66 01/23/17 16:00 44 01/23/17 16:00 98.0 44 15 113/58 (76) 96 01/23/17 14:00 62 01/23/17 12:00 98.2 57 18 135/64 (87) 96 01/23/17 12:00 57 01/23/17 10:00 66 I/O 01/23/17 01/23/17 01/23/17 01/24/17 01/24/17 01/24/17 07:00 15:00 23:00 07:00 15:00 23:00 Intake Total 480 ml 843 ml 757 ml Output Total 600 ml 600 ml 1050 ml 0 ml Balance -600 ml -120 ml -207 ml 757 ml Intake Oral 480 ml 360 ml 240 ml IV Total 483 ml 517 ml Output Urine Total 600 ml 600 ml 1050 ml Stool Total 0 ml # Voids 2 5 Result Diagram: 01/24/17 0400 01/24/17 0400 Imaging Last Impressions Head CT 01/24/17 07 Signed Impressions: Service Date/Time: Tuesday, January 24, 2017 04:38 - CONCLUSION: 1. Stable bilateral subdural hematomas Milad Anaya MD Chest X-Ray 01/22/17 0019 Signed Impressions: Service Date/Time: Sunday, January 22, 2017 17:14 - CONCLUSION: Hypoinflation with minimal bibasilar atelectatic changes. Maury Pizano MD Objective Remarks General: Elderly male in no acute distress. Sitting up in a chair. Heart: Regular rate and rhythm. No murmur. Lungs: Clear to auscultation bilaterally. No wheezes, rales, or rhonchi. Breathing is nonlabored. Abdomen: Soft, nontender, nondistended. Extremities: No lower extremity edema. SCDs. Psych: Alert, answers questions appropriately. Procedures None Urinary Catheter: No Vascular Central Line Catheter: No A/P Problem List: (1) Subdural hematoma ICD Code: I62.00 - Nontraumatic subdural hemorrhage, unspecified (2) Thrombocytopenia ICD Code: D69.6 - Thrombocytopenia, unspecified (3) Leukocytosis ICD Code: D72.829 - Elevated white blood cell count, unspecified (4) Dehydration ICD Code: E86.0 - Dehydration (5) HTN (hypertension) ICD Code: I10 - Essential (primary) hypertension (6) DM (diabetes mellitus) ICD Code: E11.9 - Type 2 diabetes mellitus without complications Assessment and Plan 1. Subdural hematoma: Bilateral. Subacute/chronic. No history of trauma. Patient is on Xarelto for history of CVA. This is now on hold. Appreciate neurosurgery recommendations. The hematomas are amenable to drainage, but the patient and his wish to continue conservative management at this time. Monitor in ICU. Continue neuro checks. Repeat CT shows the subdural hematomas are stable. 2. Hypertension: Blood pressure is much improved today. Patient did receive Lopressor in the ER and developed significant bradycardia. Hydralazine as needed. Goal blood pressure less than 150 systolic. 3. Dehydration: Improving. Restart IV fluids. Monitor BUN and creatinine. 4. Leukocytosis: Likely secondary to recent diagnosis of CLL. 5. Thrombocytopenia: Monitor platelets. Patient was given 1 unit of FFP. 6. Diabetes mellitus: Monitor Accu-Cheks and cover sliding scale insulin. 7. DVT prophylaxis: SCDs. Chemical prophylaxis Indicated secondary to subdural hematoma. Discharge Planning Keep in ICU at this time neurosurgery recommendations. Ferny Palacios MD Jan 24, 2017 09:05
--- NOTE | 2017-01-24 09:46 | HHI.NSPN ---
History Interval History is awake alert sitting up in bed eating. States again his headache is improved . No new complaints. Exam Results Vital Signs Date Time Temp Pulse Resp B/P (MAP) Pulse Ox O2 Delivery O2 Flow Rate FiO2 01/24/17 07:00 95 Room Air 01/24/17 06:00 52 01/24/17 04:58 14 01/24/17 04:00 98.0 140/63 (88) Intake and Output 01/24/17 01/24/17 01/25/17 08:00 16:00 00:00 Intake Total 757 ml Output Total 0 ml Balance 757 ml Physical Examination Patient is alert and awake oriented 3 but could not recall having had his CT scan earlier this morning.. Speech is intact. Cranial nerves II-XII intact. Motor function 5 over 5 in the upper and lower extremities. Repeat CT scan this morning continues to show bilateral chronic subdural hematomas unchanged in size from initial scan. Lab, Micro, Other Results Last Impressions Head CT 01/24/17 0700 Signed Impressions: Service Date/Time: Tuesday, January 24, 2017 04:38 - CONCLUSION: 1. Stable bilateral subdural hematomas Milad Anaya MD Chest X-Ray 01/22/17 1705 Signed Impressions: Service Date/Time: Sunday, January 22, 2017 17:14 - CONCLUSION: Hypoinflation with minimal bibasilar atelectatic changes. Maury Pizano MD Medical Decision Making Impression and Plan Assessment: Bilateral chronic subdural hematomas, complication of Xarelto. Patient still uncertain if he wishes to undergo bur hole drainage of the chronic subdurals. Neurological examination intact but patient having some decreased recent memory. Plan: Continue observation but I will speak with the patient's and daughter this afternoon regarding proceeding with bur hole drainage of the chronic subdural collections. Ariel Akins MD Jan 24, 2017 09:46
[2017-01-24] MEDS: ATORVASTATIN 20 MG TAB PO SCH (22:06)
[2017-01-24] MEDS: SENNOSIDES 8.6 MG TAB PO PRN (22:20)
[2017-01-25] MEDS ORDERED: cloNIDine HCL 0.1 MG TAB PO PRN (01:15)
[2017-01-25] MEDS ORDERED: traMADol HCL 50 MG TAB PO ONE (01:15)
[2017-01-25 01:18] VITALS: BP 187/90; PULSE 56; RESP 20; TEMP 98; O2SAT 98
[2017-01-25] MEDS: ONDANSETRON HCL 4 MG/2 ML VIAL IVP PRN (02:30)
[2017-01-25] MEDS: CHLORHEXIDINE GLUCONATE 2 % 1 PACK (2 CLOTHS) TOP SCH (02:32)
[2017-01-25] MEDS: NS + KCL 20 MEQ INJ 1,000 ML IV SCH ×2 (02:32→16:40)
[2017-01-25 05:25] VITALS: BP 163/70; PULSE 46; RESP 18; TEMP 98.4; O2SAT 95
--- NOTE | 2017-01-25 06:13 | MB ---
cc: EDNA MCCLAIN DATE OF 1940 DATE OF CONSULTATION January 24, 2017 REASON FOR CONSULTATION Patient with a history of CVA who was on Xarelto and develops bilateral subdural hematomas. He also has a history of CLL. CHIEF COMPLAINT Headaches. HISTORY OF PRESENT ILLNESS Mr. Victor is a 76-year-old male who has a past medical history of hypertension, diabetes type 2 and history of CVA. He follows with Neurology. He has been on Xarelto and recently presented to his primary care physician with complaints of headache. He was found to have bilateral subdural hematomas. The patient was sent to the emergency room. On admission imaging was obtained including a CT of the head which showed acute on chronic bilateral subdural hematoma. There was no midline shift or herniation. He has had subsequent CT head twice which shows stable bilateral hematomas. The patient has been evaluated by Neurosurgery who had recommended bur hole drainage of the chronic subdurals. However, the patient has not made any decision regarding this procedure. He would like to speak with his and daughter. On admission the patient was given 1 unit of FFP. On admission his coags show a PT of 11.9, INR 1.1, PTT of 24. He denies any past medical history of DVT or pulmonary embolism. He states that he has been on Coumadin under the care of Dr. Mendiola for CVA. Hematology has been consulted to make further recommendations in this patient has had subdural bleeding in the setting of being on Xarelto. He also has a history of CLL. On admission his white blood cell count was 20.2, hemoglobin was 13.6 and platelet count was 144,000. He has lymphocytosis with an absolute lymphocyte count of 12.5. He has never had any lymphadenopathy. No recurrent infections. He has never received any treatment for CLL. He does not follow with hematology. He denies any anorexia, no weight loss. No night sweats, no abdominal fullness, no early satiety. REVIEW OF SYSTEMS A comprehensive 14-point review of systems was completed which is negative except as described in the HPI. PAST MEDICAL HISTORY 1. CLL. 2. History of CVAs. 3. Hypertension. 4. Diabetes. PAST SURGICAL HISTORY 1. Bilateral hernia repair. 2. Bilateral cataract surgery. 3. Anterior cervical fusion. MEDICATIONS 1. Morphine sulfate 3 mg IV q.3 hours. 2. Lisinopril 20 mg p.o. daily. 3. Verapamil 120 mg p.o. daily. 4. Sliding scale insulin. 5. Senna. 6. Colace. 7. Lipitor 20 mg p.o. q.h.s. 8. Hydralazine 10 mg IV q.6 hours p.r.n. 9. Zofran 4 mg IV q.6 hours p.r.n. 10. Bisaodyl. 11. Lactulose. ALLERGIES ASPIRIN. CYCLOBENZAPRINE. OXYCODONE. PHYSICAL EXAMINATION VITAL SIGNS: Blood pressure is 106/60, pulse is in the 50s, temperature is 98.1. GENERAL: A well-developed, well-nourished male in no apparent distress. HEENT: Pupils are equal, round, reactive to light. EOMI. No oral thrush, no oral lesion. NECK: Supple. No JVD, no bruits, no lymphadenopathy. CHEST: Clear to auscultation bilaterally. CARDIAC: S1-S2, regular rate and rhythm. ABDOMEN: Soft, nontender, nondistended. Bowel sounds are present. EXTREMITIES: Without any edema, erythema or cyanosis. SKIN: Without any petechiae, lesion or bruises. NEURO: No focal deficits. PSYCHIATRIC: Mood and affect is appropriate. LABORATORY DATA WBC is 15.8, hemoglobin 12.8. His MCV is 90.2, platelet count is 123. Serum chemistries show sodium of 140, potassium 40, chloride 105, CO2 23.3, BUN is 16, creatinine is 1.09, calcium is 8.2, magnesium 1.9, AST is 14, ALT is 18, alk phos 57, total protein 6.2, albumin is 3.7. IMAGING STUDIES Reviewed in the EMR. ASSESSMENT AND PLAN This is a 76-year-old male with a past medical history of hypertension, diabetes, history of CLL, history of CVA who was on Xarelto and developed bilateral subdural hematomas. 1. Subdural hematomas while being on Xarelto. He was on Xarelto for stroke prophylaxis. The patient has been evaluated by Neurosurgery and they have recommended bur hole surgery to evacuate the hematomas. The patient is currently considering undergoing this procedure. We will discontinue Xarelto. He will remain off any type of anticoagulation. It appears that he was on Xarelto for stroke prevention. There has been past history of DVT or pulmonary embolism. He states that he has had an episode of A-fib in the past but he has not had any recurrence of A-fib. On clinical exam his rate and rhythm was regular and normal. 2. CLL with lymphocytosis. He does not have any lymphadenopathy. No cytopenias. His platelet count is in the 120,000 range. He is completely asymptomatic. I had a long discussion with him and explained to him that patients with CLL can be observed for a very long time without any treatment if they remain asymptomatic and do not have any cytopenias. He does not appear to have any splenomegaly. 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 He will follow up with me in clinic in [id number] weeks after discharge. 3. History of CVA. 4. History of hypertension. 5. Diabetes type 2. Thank you for allowing me to participate in the care of this patient. I will continue to follow this patient along. MD MITALI Funk/MENG /12:55 AM /5:59 AM
[2017-01-25 07:35] LABS: AUTOMATED NEUTROPHIL # 6.4 TH/MM3 (1.8-7.7); BASOPHIL # 0.1 TH/MM3 (0-0.2); BASOPHIL % 0.3 % (0.0-2.0); EOSINOPHIL # 0.1 TH/MM3 (0-0.4); EOSINOPHIL % 0.5 % (0.0-4.0); HEMATOCRIT 37.8 % (39.0-51.0); LYMPH % 55.6 % (9.0-44.0); LYMPHOCYTE # 9.6 TH/MM3 (1.0-4.8); MEAN CELL VOLUME 90.3 FL (80.0-100.0); MEAN CORPUSCULAR HEMOGLOBIN 30.5 PG (27.0-34.0); MEAN CORPUSCULAR HGB CONC 33.8 % (32.0-36.0); MONO % 6.6 % (0.0-8.0); PLATELET COUNT 124 TH/MM3 (150-450); RED BLOOD COUNT 4.19 MIL/MM3 (4.50-5.90); RED CELL DISTRIBUTION WIDTH 14.6 % (11.6-17.2); WHITE BLOOD COUNT 17.3 TH/MM3 (4.0-11.0)
[2017-01-25 07:39] LABS: HEMO FLAGS AUTO DIFF
[2017-01-25 07:49] LABS: BICARBONATE 20.8 MEQ/L (21.0-32.0); POTASSIUM 4.1 MEQ/L (3.5-5.1)
[2017-01-25] MEDS: INSULIN ASPART SUPPLEMENTAL SCALE SQ SCH ×4 (08:00→20:28)
[2017-01-25 08:36] VITALS: BP 118/63; PULSE 44; RESP 18; TEMP 97; O2SAT 95
[2017-01-25] MEDS: SODIUM CHLORIDE 0.9% FLUSH 10 ML FLUSH IV FLUSH SCH ×2 (08:43→20:27)
[2017-01-25] MEDS: VERAPAMIL HCL 120 MG TAB PO SCH (08:45)
[2017-01-25] MEDS: DOCUSATE SODIUM 50 MG/SENNA 8.6 MG TAB PO SCH ×2 (08:46→20:26)
[2017-01-25] MEDS: LISINOPRIL 20 MG TAB PO SCH (08:47)
--- NOTE | 2017-01-25 09:34 | HHI.PR ---
Subjective Remarks The patient was resting in bed comfortably. He seemed tired. He was able to answer questions with prompting. He said his headache was a 6 out of 10 in severity. Objective Vitals Vital Signs Date Time Temp Pulse Resp B/P (MAP) Pulse Ox O2 Delivery O2 Flow Rate FiO2 01/25/17 08:36 97.0 44 18 118/63 (81) 95 01/25/17 05:25 98.4 46 18 163/70 (101) 95 01/25/17 01:18 98.0 56 20 187/90 (122) 98 01/24/17 23:54 Room Air 01/24/17 21:46 97.9 63 18 119/76 (90) 97 01/24/17 17:17 97.8 99 18 162/80 (107) 98 01/24/17 16:00 98.1 49 19 130/66 (87) 97 01/24/17 14:00 58 01/24/17 12:00 98.1 56 18 106/60 (75) 94 01/24/17 12:00 56 01/24/17 10:00 68 I/O 01/24/17 01/24/17 01/24/17 01/25/17 01/25/17 01/25/17 07:00 15:00 23:00 07:00 15:00 23:00 Intake Total 757 ml 1059 ml Output Total 0 ml Balance 757 ml 1059 ml Intake Oral 240 ml 600 ml IV Total 517 ml 459 ml Stool Total 0 ml # Voids 5 3 3 # Bowel Movements 0 Result Diagram: 01/25/17 0525 01/25/17 0525 Imaging Last Impressions Head CT 01/24/17 0700 Signed Impressions: Service Date/Time: Tuesday, January 24, 2017 04:38 - CONCLUSION: 1. Stable bilateral subdural hematomas Milad Anaya MD Chest X-Ray 01/22/17 1705 Signed Impressions: Service Date/Time: Sunday, January 22, 2017 17:14 - CONCLUSION: Hypoinflation with minimal bibasilar atelectatic changes. Maury Pizano MD Objective Remarks General: Elderly male in no acute distress. HEENT: NC, AT. Heart: Regular rate and rhythm. No murmur. Lungs: Clear to auscultation bilaterally. No wheezes, rales, or rhonchi. Breathing is nonlabored. Abdomen: Soft, nontender, nondistended. Extremities: No lower extremity edema. SCDs. Neuro: Awake, answers questions, lethargic. Psych: Calm. Procedures None Medications and IVs Current Medications Medications (Trade) Dose Ordered Sig/Adam Route Start Time Stop Time Status Last Admin (Narcan Inj) 0.4 mg UNSCH PRN IV PUSH 01/22/17 19:00 Miscellaneous Information 1 [id number] XX 01/22/17 19:30 (Chlorhexidine 2% Cloth) 3 pack Taper DAILY@04 TOP 01/23/17 04:00 01/19/18 03:59 (Chlorhexidine 2% Cloth) 3 pack UNSCH PRN TOP 01/22/17 19:30 (D50w (Vial) Inj) 50 ml UNSCH PRN IV PUSH 01/22/17 19:30 (Glucagon Inj) 1 mg UNSCH PRN OTHER 01/22/17 19:30 (NovoLOG SUPPLEMENTAL SCALE) 1 ACHS SLIDING SCALE SQ 01/22/17 21:00 01/25/17 08:00 (NS Flush) 2 ml UNSCH PRN IV FLUSH 01/22/17 19:30 (NS Flush) 2 ml BID IV FLUSH 01/22/17 21:00 01/23/17 20:39 (Zofran Inj) 4 mg Q6H PRN IVP 01/22/17 19:30 01/25/17 02:30 (Tylenol) 650 mg Q6H PRN PO 01/22/17 19:30 01/24/17 01:24 (Marlys-Colace) 1 tab BID PO 01/22/17 21:00 01/25/17 08:46 (Milk Of Magnesia Liq) 30 ml Q12H PRN PO 01/22/17 19:30 (Senokot) 17.2 mg Q12H PRN PO 01/22/17 19:30 01/24/17 22:20 (Dulcolax Supp) 10 mg DAILY PRN RECTAL 01/22/17 19:30 (Lactulose Liq) 30 ml DAILY PRN PO 01/22/17 19:30 (Lipitor) 20 mg HS PO 01/22/17 21:00 01/24/17 22:06 (Prinivil) 20 mg DAILY PO 01/23/17 09:00 01/25/17 08:47 (Isoptin) 120 mg DAILY PO 01/23/17 09:00 01/24/17 08:03 (Apresoline Inj) 10 mg Q6H PRN IV PUSH 01/22/17 20:45 01/24/17 01:38 Potassium Chloride/Sodium Chloride 1,000 ml @ 70 mls/hr [id number] IV 01/23/17 08:30 01/24/17 04:54 (Morphine Inj) 3 mg Q3H PRN IV PUSH 01/24/17 04:30 01/24/17 22:08 (Catapres) 0.1 mg Q6H PRN PO 01/25/17 01:15 01/25/17 01:27 A/P Problem List: (1) Subdural hematoma ICD Code: I62.00 - Nontraumatic subdural hemorrhage, unspecified (2) Thrombocytopenia ICD Code: D69.6 - Thrombocytopenia, unspecified (3) Leukocytosis ICD Code: D72.829 - Elevated white blood cell count, unspecified (4) Dehydration ICD Code: E86.0 - Dehydration (5) HTN (hypertension) ICD Code: I10 - Essential (primary) hypertension (6) DM (diabetes mellitus) ICD Code: E11.9 - Type 2 diabetes mellitus without complications Assessment and Plan 1. Subdural hematoma: Bilateral. Subacute/chronic. No history of trauma. Patient is on Xarelto for history of CVA. This is now on hold. Appreciate neurosurgery recommendations. The hematomas are amenable to drainage, but the patient and his wish to continue conservative management at this time. Monitor in ICU. Continue neuro checks. Repeat CT shows the subdural hematomas are stable. Follow up with neurosurgery. 2. Hypertension: Blood pressure is much improved today. Patient did receive Lopressor in the ER and developed significant bradycardia. Hydralazine as needed. Goal blood pressure less than 150 systolic. Continue lisinopril. D/c verapamil s/t bradycardia. 3. Dehydration: Improving. Restart IV fluids. Monitor BUN and creatinine. 4. Leukocytosis: Likely secondary to recent diagnosis of CLL. Stable. 5. Thrombocytopenia: Monitor platelets. Patient was given 1 unit of FFP. Staamaris. Hematology consult was appreciated. 6. Diabetes mellitus: Monitor Accu-Cheks and cover sliding scale insulin. 7. DVT prophylaxis: SCDs. Chemical prophylaxis Indicated secondary to subdural hematoma. 8. Bradycardia: Possibly s/t subdural hematoma. Monitor on telemetry. Discharge Planning Per Kirill Enrique DO Jan 25, 2017 09:34
[2017-01-25 11:46] LABS: BANDS 1 % (0-6); NEUTROPHIL # MANUAL DIFF 6.7 TH/MM3 (1.8-7.7); POLYS (SEG NEUTROPHILS) 38 % (16-70); WBC DIFF SAMPLE 100
[2017-01-25 11:56] LABS: PLATELET ESTIMATE SMEAR LOW (NORMAL); PLATELET MORPHOLOGY NORMAL (NORMAL); SCAN/DIFF FINAL DIFF MANUAL; SMUDGE CELLS PRESENT PRESENT
[2017-01-25 12:06] VITALS: BP 105/56; PULSE 59; RESP 18; TEMP 98.4; O2SAT 98
[2017-01-25] MEDS ORDERED: METOPROLOL TARTRATE 25 MG TAB PO PRN (14:45)
[2017-01-25] MEDS ORDERED: POVIDONE IODINE 5% (ANTISEPSIS KIT) 4 APPLICATIONS EACH NARE PRN (14:45)
[2017-01-25] MEDS ORDERED: CHLORHEXIDINE GLUCONATE 2 % 1 PACK (2 CLOTHS) TOPICAL PRN (14:45)
[2017-01-25] MEDS ORDERED: SODIUM CHLORID 0.9% 500 ML IV PRN (14:45)
[2017-01-25] MEDS ORDERED: LACTATED RINGER'S 1000 ML IV PRN (14:45)
[2017-01-25] MEDS ORDERED: INSULIN HUMAN REGULAR 1,000 UNITS/10 ML VIAL SQ PRN (14:45)
--- NOTE | 2017-01-25 15:34 | HHI.NSPN ---
(Aj Kelly) History Chief Complaint: Headaches with bilateral subdural hemorrhages. (Aj Kelly) Interval History This is a 76-year-old gentleman with significant past medical history of diabetes, hypertension, recent CVA who has been on Xarelto since the diagnosis of the CVA. He has a longstanding history of chronic headaches but over the past couple weeks he has noted worsening of his headache which is now more global than cervical-occipital. 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 Significant effacement of the frontal parenchyma but no midline shift. Since admission to the emergency room, the patient notes his headache has improved with medication. Other than headache, he has also noted some scintillating visual changes and dizziness. No motor or sensory loss or dysfunction in the upper or lower extremities. 01/25: Pt awake and alert. Sitting up in chair. Complains of headaches with intermittent intensity. No n/v. No paresthesias. Family at bedside state he is not his usual cognitive self and has had difficulty with memory and mental sharpness. He has also been off balance lately, but no focal muscle weakness. (Aj Kelly) Exam Results Vital Signs Date Time Temp Pulse Resp B/P (MAP) Pulse Ox O2 Delivery O2 Flow Rate FiO2 01/25/17 12:06 98.4 59 18 105/56 (72) 98 01/24/17 23:54 Room Air (Aj Kelly) Physical Examination Resp: CTA bilaterally Heart: NSR no murmurs Abd: Soft positive bs Skin: No cyanosis or erythema Muscle: Moves all 4 extremities with symmetric strength. Neuro: Pt awake and alert. Pupils equal. Speech clear and appropriate. Memory with some deficits. Sensation intact. (Aj Kelly) Lab, Micro, Other Results Last Impressions Head CT 01/24/17 0700 Signed Impressions: Service Date/Time: Tuesday, January 24, 2017 04:38 - CONCLUSION: 1. Stable bilateral subdural hematomas Milad Anaya MD Chest X-Ray 01/22/17 1705 Signed Impressions: Service Date/Time: Sunday, January 22, 2017 17:14 - CONCLUSION: Hypoinflation with minimal bibasilar atelectatic changes. Maury Pizano MD Laboratory Tests Test 01/25/17 05:25 White Blood Count 17.3 TH/MM3 Red Blood Count 4.19 MIL/MM3 Hemoglobin 12.8 GM/DL Hematocrit 37.8 % Mean Corpuscular Volume 90.3 FL Mean Corpuscular Hemoglobin 30.5 PG Mean Corpuscular Hemoglobin Concent 33.8 % Red Cell Distribution Width 14.6 % Platelet Count 124 TH/MM3 Mean Platelet Volume 6.6 FL Neutrophils (%) (Auto) 37.0 % Lymphocytes (%) (Auto) 55.6 % Monocytes (%) (Auto) 6.6 % Eosinophils (%) (Auto) 0.5 % Basophils (%) (Auto) 0.3 % Neutrophils # (Auto) 6.4 TH/MM3 Lymphocytes # (Auto) 9.6 TH/MM3 Monocytes # (Auto) 1.1 TH/MM3 Eosinophils # (Auto) 0.1 TH/MM3 Basophils # (Auto) 0.1 TH/MM3 CBC Comment AUTO DIFF Differential Total Cells Counted 100 Neutrophils % (Manual) 38 % Band Neutrophils % 1 % Lymphocytes % 58 % Monocytes % 3 % Neutrophils # (Manual) 6.7 TH/MM3 Differential Comment FINAL DIFF MANUAL Smudge Cells PRESENT Platelet Estimate LOW Platelet Morphology Comment NORMAL Blood Urea Nitrogen 15 MG/DL Creatinine 0.97 MG/DL Random Glucose 166 MG/DL Calcium Level 8.4 MG/DL Sodium Level 134 MEQ/L Potassium Level 4.1 MEQ/L Chloride Level 105 MEQ/L Carbon Dioxide Level 20.8 MEQ/L Anion Gap 8 MEQ/L Estimat Glomerular Filtration Rate 75 ML/MIN (Aj Kelly) Medical Decision Making Impression and Plan A: 76 y/o M with bilateral subdural hemorrhage, a mixture of chronic and acute hemorrhage. Hx of Xarelto use. This has been on hold since admission. P: The patient was evaluated in conjunction with Dr. Medina. Discussed with family at bedside consisting of his and daughter who is a critical care physician in the [facility]. We discussed treatment options which include observation with the understanding that these hemorrhages can get bigger and lead to worsening headaches and decreased level of alertness, coma, and . The other option is surgical intervention which would entail bilateral bur holes with possible craniotomy drainage of the subdural collections. We discussed with them that sometimes given the chronicity of the subdural collections evacuation is not possible for a bur hole in which case a craniotomy would need to be done to evacuate the hemorrhage. We also discussed the risk involved with surgery which include but are not limited to rebleed, infection, seizures, edema, cardiopulmonary effects of anesthesia including heart attack, stroke, blood clots in the arms or legs lungs, and . The patient, , and daughter understands the options and are requesting a repeat proceed with surgical intervention. Informed consent was obtained from the given the patient's memory difficulty and decreased mental sharpness although he also expressed understanding of the procedure and the risks and consented. We plan on proceeding tomorrow morning. (Aj Kelly) Attending Statement The exam, history, and the medical decision-making described in the above note were completed with the assistance of the mid-level provider. I reviewed and agree with the findings presented. I attest that I had a [id number] encounter with the patient on the same day, and personally performed and documented my assessment and findings in the medical record. Patient's main complaint is persistent headaches and poor appetite, unsteadiness. Daughter at bedside is an airplane gas tank liner assembler and relates progressive cognitive function decline of the last several weeks with short-term memory loss and poor concentration along with the headaches and poor appetite and unsteady gait. At this point the daughter and are requesting we proceed with surgical intervention for the bilateral subdural hemorrhages and after discussion with the patient he also is in agreement. We'll plan for a bilateral rachael hole possible craniotomy for subdural hemorrhage evacuation tomorrow morning. Informed consent obtained. (Henry Medina MD) Aj Kelly Jan 25, 2017 15:34 Henry Medina MD Jan 25, 2017 16:01
[2017-01-25] MEDS: ACETAMINOPHEN 325 MG TAB PO PRN ×2 (16:37→22:04)
[2017-01-25 16:47] VITALS: BP 132/60; PULSE 49; RESP 18; TEMP 98.2; O2SAT 98
[2017-01-25 20:00] VITALS: BP 122/59; PULSE 52; RESP 18; TEMP 98.6; O2SAT 96
[2017-01-25] MEDS: ATORVASTATIN 20 MG TAB PO SCH (20:26)
--- NOTE | 2017-01-25 23:42 | PD.ONC.PN ---
Subjective Subjective Remarks resting appears comfortable does have episodic headaches he is agreeable to proceeding with surgery Objective Data Date Time Temp Pulse Resp B/P (MAP) Pulse Ox O2 Delivery O2 Flow Rate FiO2 01/25/17 20:00 98.6 52 18 122/59 (80) 96 01/25/17 16:47 98.2 49 18 132/60 (84) 98 01/25/17 12:06 98.4 59 18 105/56 (72) 98 01/25/17 08:36 97.0 44 18 118/63 (81) 95 01/25/17 05:25 98.4 46 18 163/70 (101) 95 01/25/17 01:18 98.0 56 20 187/90 (122) 98 01/24/17 23:54 Room Air Result Diagram: 01/25/1725 01/25/17 0525 Laboratory Results Laboratory Tests Test 01/25/17 05:25 White Blood Count 17.3 TH/MM3 Red Blood Count 4.19 MIL/MM3 Hemoglobin 12.8 GM/DL Hematocrit 37.8 % Mean Corpuscular Volume 90.3 FL Mean Corpuscular Hemoglobin 30.5 PG Mean Corpuscular Hemoglobin Concent 33.8 % Red Cell Distribution Width 14.6 % Platelet Count 124 TH/MM3 Mean Platelet Volume 6.6 FL Neutrophils (%) (Auto) 37.0 % Lymphocytes (%) (Auto) 55.6 % Monocytes (%) (Auto) 6.6 % Eosinophils (%) (Auto) 0.5 % Basophils (%) (Auto) 0.3 % Neutrophils # (Auto) 6.4 TH/MM3 Lymphocytes # (Auto) 9.6 TH/MM3 Monocytes # (Auto) 1.1 TH/MM3 Eosinophils # (Auto) 0.1 TH/MM3 Basophils # (Auto) 0.1 TH/MM3 CBC Comment AUTO DIFF Differential Total Cells Counted 100 Neutrophils % (Manual) 38 % Band Neutrophils % 1 % Lymphocytes % 58 % Monocytes % 3 % Neutrophils # (Manual) 6.7 TH/MM3 Differential Comment FINAL DIFF MANUAL Smudge Cells PRESENT Platelet Estimate LOW Platelet Morphology Comment NORMAL Blood Urea Nitrogen 15 MG/DL Creatinine 0.97 MG/DL Random Glucose 166 MG/DL Calcium Level 8.4 MG/DL Sodium Level 134 MEQ/L Potassium Level 4.1 MEQ/L Chloride Level 105 MEQ/L Carbon Dioxide Level 20.8 MEQ/L Anion Gap 8 MEQ/L Estimat Glomerular Filtration Rate 75 ML/MIN Administered Medications Medications (Trade) Dose Ordered Sig/Adam Route PRN Reason Start Time Stop Time Status Last Admin Dose Admin Insulin Aspart (NovoLOG SUPPLEMENTAL SCALE) 1 ACHS SLIDING SCALE SQ 01/22/17 21:00 01/25/17 20:28 Sodium Chloride (NS Flush) 2 ml BID IV FLUSH 01/22/17 21:00 01/25/17 20:27 Ondansetron HCl (Zofran Inj) 4 mg Q6H PRN IVP NAUSEA OR VOMITING 01/22/17 19:30 01/25/17 02:30 Senna/Docusate Sodium (Marlys-Colace) 1 tab BID PO 01/22/17 21:00 01/25/17 20:26 Sennosides (Senokot) 17.2 mg Q12H PRN PO Moderate constipation 01/22/17 19:30 01/24/17 22:20 Atorvastatin Calcium (Lipitor) 20 mg HS PO 01/22/17 21:00 01/25/17 20:26 Lisinopril (Prinivil) 20 mg DAILY PO 01/23/17 09:00 01/25/17 08:47 Hydralazine HCl (Apresoline Inj) 10 mg Q6H PRN IV PUSH SYSTOLIC >150 01/22/17 20:45 01/24/17 01:38 Potassium Chloride/Sodium Chloride 1,000 ml @ 70 mls/hr [id number] IV 01/23/17 08:30 01/24/17 04:54 Morphine Sulfate (Morphine Inj) 3 mg Q3H PRN IV PUSH Pain 6-10 01/24/17 04:30 01/24/17 22:08 Clonidine (Catapres) 0.1 mg Q6H PRN PO SBP>160, DBP>90 01/25/17 01:15 01/25/17 01:27 Acetaminophen (Tylenol) 650 mg Q6H PRN PO HEADACHE/FEVER > 101.5 01/25/17 17:00 01/25/17 22:04 Objective Remarks GENERAL: nad SKIN: Warm and dry. NECK: Supple, trachea midline. No JVD or lymphadenopathy. LYMPHATIC: No adenopathy. CARDIOVASCULAR: Regular rate and rhythm without murmurs. RESPIRATORY: Breath sounds equal bilaterally. No accessory muscle use. GASTROINTESTINAL: Abdomen soft, non-tender, nondistended. EXTREMITIES: No cyanosis, or edema. Assessment/Plan Problem List: (1) Thrombocytopenia ICD Codes: D69.6 - Thrombocytopenia, unspecified (2) Leukocytosis ICD Codes: D72.829 - Elevated white blood cell count, unspecified (3) Subdural hematoma ICD Codes: I62.00 - Nontraumatic subdural hemorrhage, unspecified Assessment 76-year-old male with a past medical history of hypertension, diabetes, history of CLL, history of CVA who was on Xarelto and developed bilateral subdural hematomas. 1. Subdural hematomas while being on Xarelto. Xarelto was discontinued - patient is agreeable to rachael hole surgery 2. CLL with lymphocytosis. He does not have any lymphadenopathy. No cytopenias. He is completely asymptomatic. CRUZ Stage 0 - abdominal U/S to evaluate for splenomegaly at a later date 3. History of CVA. 4. History of hypertension. 5. Diabetes type 2. Clay Iglesias MD Jan 25, 2017 23:42
[2017-01-26] VITALS (11 sets, daily range): BP systolic 125–152; BP diastolic 70–78; PULSE 55–95; RESP 17–25; TEMP 97.6–98.6; O2SAT 97–99
[2017-01-26] MEDS: CHLORHEXIDINE GLUCONATE 2 % 1 PACK (2 CLOTHS) TOP SCH (04:00)
[2017-01-26] MEDS ORDERED: THROMBIN (TOPICAL) 5,000 UNIT VIAL ONE (07:45)
[2017-01-26] MEDS ORDERED: GELFOAM SIZE 100 ONE (07:45)
[2017-01-26] MEDS ORDERED: BUPIVACAINE/EPINEPHRINE 0.5% 50 ML VIAL ONE ×2 (07:45→08:11)
[2017-01-26] MEDS ORDERED: GENTAMICIN SULFATE 80 MG/2 ML VIAL ONE (07:45)
[2017-01-26] MEDS: NS + KCL 20 MEQ INJ 1,000 ML IV SCH ×2 (07:57→11:35)
[2017-01-26] MEDS: SODIUM CHLORIDE 0.9% FLUSH 10 ML FLUSH IV FLUSH SCH ×2 (07:57→20:18)
[2017-01-26] MEDS: INSULIN ASPART SUPPLEMENTAL SCALE SQ SCH ×3 (07:58→20:48)
[2017-01-26] MEDS ORDERED: MANNITOL INJ 0 ML ONE (08:12)
[2017-01-26] MEDS: LISINOPRIL 20 MG TAB PO SCH (08:12)
[2017-01-26] MEDS: DOCUSATE SODIUM 50 MG/SENNA 8.6 MG TAB PO SCH ×2 (08:12→20:18)
--- NOTE | 2017-01-26 08:41 | HHI.PR ---
Subjective Remarks Follow-up for bilateral subdural hemorrhage. Patient is currently doing well. Denies any chest pain, shortness of breath, fever or chills. He is going for surgical intervention this morning. Objective Vitals Vital Signs Date Time Temp Pulse Resp B/P (MAP) Pulse Ox O2 Delivery O2 Flow Rate FiO2 01/26/17 07:58 98.3 63 18 152/72 (98) 98 01/26/17 04:00 98.3 58 17 138/75 (96) 98 01/26/17 00:00 97.6 55 18 142/70 (94) 98 01/25/17 20:00 98.6 52 18 122/59 (80) 96 01/25/17 16:47 98.2 49 18 132/60 (84) 98 01/25/17 12:06 98.4 59 18 105/56 (72) 98 I/O 01/25/17 01/25/17 01/25/17 01/26/17 01/26/17 01/26/17 07:00 15:00 23:00 07:00 15:00 23:00 Intake Total 480 ml Balance 480 ml Intake Oral 480 ml # Voids 3 2 2 # Bowel Movements 0 Result Diagram: 01/25/17 0525 01/25/17 0525 Imaging Last Impressions Head CT 01/24/17 0700 Signed Impressions: Service Date/Time: Tuesday, January 24, 2017 04:38 - CONCLUSION: 1. Stable bilateral subdural hematomas Milad Anaya MD Chest X-Ray 01/22/17 1705 Signed Impressions: Service Date/Time: Sunday, January 22, 2017 17:14 - CONCLUSION: Hypoinflation with minimal bibasilar atelectatic changes. Maury Pizano MD Objective Remarks GENERAL: Alert, oriented 3, NAD. SKIN: Warm and dry. HEAD: Normocephalic. EYES: No scleral icterus. No injection or drainage. NECK: Supple, trachea midline. No JVD or lymphadenopathy. CARDIOVASCULAR: Regular rate and rhythm without murmurs, gallops, or rubs. RESPIRATORY: Breath sounds equal bilaterally. No accessory muscle use. GASTROINTESTINAL: Abdomen soft, non-tender, nondistended. MUSCULOSKELETAL: No cyanosis, or edema. Neurological: Awake, alert, oriented 3. Normal speech. No focal neurological deficits. Moves upper and lower extremities spontaneously. BACK: Nontender without obvious deformity. No CVA tenderness. Procedures None A/P Problem List: (1) Subdural hematoma ICD Code: I62.00 - Nontraumatic subdural hemorrhage, unspecified (2) Thrombocytopenia ICD Code: D69.6 - Thrombocytopenia, unspecified (3) Leukocytosis ICD Code: D72.829 - Elevated white blood cell count, unspecified (4) Dehydration ICD Code: E86.0 - Dehydration (5) HTN (hypertension) ICD Code: I10 - Essential (primary) hypertension (6) DM (diabetes mellitus) ICD Code: E11.9 - Type 2 diabetes mellitus without complications Assessment and Plan Mr. Victor is a pleasant 76-year-old male with a history of hypertension, diabetes, CVA, CLL who was admitted to the hospital on 01/22/2017 due to headache and subsequent finding of bilateral subdural hemorrhage. Patient has been on Xarelto due to atrial fibrillation and stroke prevention. Neurosurgery has been following patient closely. Patient underwent surgical intervention on 01/26/2017. - Subdural hemorrhage, bilateral - Xarelto on hold, hematology following. - Bipolar placement with possible craniectomy 01/26/2017. - Hypertension - continue lisinopril 20 mg daily. May need to add low-dose calcium channel marie such as amlodipine 5 mg daily. - Thrombocytopenia - platelet count 124K on 01/25/2017. - CLL with lymphocytosis - Asymptomatic. Outpatient follow up. - History of CVA - Patient may need anti-coagulation in future or possibly Aspirin/plavix for stroke prevention. - Continue Lipitor 20mg QHS. - Diabetes mellitus - continue sliding scale insulin. Blood sugar well controlled. Goal blood sugar 140-180. Full code. Ambulation. No pharmacological DVT prophylaxis unless directed by neurosurgery. Huseyin Quiros DO Jan 26, 2017 08:41
[2017-01-26] MEDS ORDERED: VANCOMYCIN HCL 1000 MG VIAL ONE (09:20)
[2017-01-26] MEDS ORDERED: INFLUENZA VIRUS VACCINE (QUADRIVALENT) 0.5 ML SYR IM ONE (10:00)
[2017-01-26] MEDS ORDERED: DO NOT ADM ANY ANTICOAGULANT DRUGS PRN (11:03)
[2017-01-26] MEDS ORDERED: *morphine SULFATE 8 MG/ML PERIprocedure ONLY ONE (11:12)
[2017-01-26] MEDS ORDERED: PROMETHAZINE INJ 25 MG/ML VIAL IM PRN (11:15)
[2017-01-26] MEDS ORDERED: MAGNESIUM HYDROXIDE SUSP 30 ML CUP PO PRN (11:15)
[2017-01-26] MEDS ORDERED: ALUMINUM/MAGNESIUM/SIMETH 30 ML CUP PO PRN (11:15)
[2017-01-26] MEDS ORDERED: RESP: ALBUTEROL 2.5 MG/3 ML NEB (PRN) NEB (11:15)
[2017-01-26] MEDS ORDERED: SODIUM CHLORIDE 0.9% FLUSH 10 ML FLUSH IV FLUSH PRN (11:15)
[2017-01-26] MEDS ORDERED: MENTHOL LOZENGE BUCCAL PRN (11:15)
[2017-01-26] MEDS ORDERED: POTASSIUM CHLOR 20 MEQ PREMIX 100 ML IV PRN (11:15)
[2017-01-26] MEDS ORDERED: MAGNESIUM SULFATE INJ 2 GM in SODIUM CHLORIDE 0.9% INJ 100 ML IV PRN (11:15)
[2017-01-26] MEDS ORDERED: ZOLPIDEM TARTRATE 5 MG TAB PO PRN (11:15)
[2017-01-26] MEDS ORDERED: cloNIDine HCL 0.1 MG TAB PO PRN (11:15)
[2017-01-26] MEDS ORDERED: CALCIUM GLUCONATE INJ 1 GM in SODIUM CHLORIDE 0.9% INJ 100 ML IV PRN (11:15)
[2017-01-26] MEDS ORDERED: ONDANSETRON HCL 4 MG/2 ML VIAL IV PUSH PRN (11:15)
[2017-01-26] MEDS ORDERED: *ENALAPRILAT 1.25 MG/ML VIAL PERIprocedural Use ONLY ONE (11:16)
[2017-01-26] MEDS ORDERED: GLYCOPYRROLATE 0.2 MG/ML VIAL ONE (11:17)
[2017-01-26] MEDS: hydrALAZINE HCL 20 MG/ML VIAL IV PUSH PRN (11:20)
--- NOTE | 2017-01-26 11:28 | PD.OP ---
Pedro Moeller MD Operative Report Date of Surgery: Jan 26, 2017 Preoperative Diagnosis: Bilateral subacute/chronic subdural hemorrhage Postoperative Diagnosis: Same Procedure: Right parietal rachael hole placement for subdural hemorrhage evacuation; left parietal bur hole placement for subdural hemorrhage evacuation Anesthesia: Gen. endotracheal by Justin wynn Surgeon: Henry Medina M.D. Sushi Chef(s): Manjula Whitman Operation and Findings: Following administration of a general endotracheal anesthesia, patient received a gram of vancomycin intravenously. Gonzalez catheter was placed along with sequential compression devices and he was positioned supine on the horseshoe headrest with the head in a neutral position. The right lateral frontoparietal area was then shaved and prepped with the resolution and ChloraPrep and sterilely draped. A small right to the parietal left parietal separate incision was made after infiltrating the scalp with 0.5% Marcaine with epinephrine solution. Incisions carried down through the galea and a self- retaining retractor used for exposure. With an automated fire hazard inspector a bur hole was made and the underlying dura cauterized with bipolar cautery and opened in a cruciate format on both sides sequentially. A subacute and chronic brownish blackish liquefied blood was encountered and evacuated under moderate pressure. The subdural space was then thoroughly irrigated with a drain also until the fluid was more clear. 7 mm LIANNA drains were in placed in the subdural space bilaterally which was exited through the rachael holes and tunneled on the scalp and secured the exit site with a 3-0 nylon suture. The galea was then approximated using 3-0 Vicryl interrupted stitches and final skin closure was with louis. A sterile dressing was then applied. Patient was then extubated and taken recovery room. There were no intraoperative complications and all sponge and needle count was correct at the end of the procedure. Estimated blood loss 50 cc from the procedure. Henry Medina MD Jan 26, 2017 11:28
[2017-01-26] MEDS ORDERED: LIDOCAINE HCL 1% PF 5 ML SYRINGE OTHER ONE (12:00)
[2017-01-26] MEDS ORDERED: LABETALOL HCL 100 MG/20 ML VIAL IV ONE (12:00)
[2017-01-26] MEDS ORDERED: PHENYLEPH/NS 1000 MCG/10 ML SYR IV ONE (12:00)
[2017-01-26] MEDS ORDERED: ePHEDrine/NS 25 MG/5 ML SYR IV ONE (12:00)
[2017-01-26] MEDS ORDERED: GLYCOPYRROLATE 1 MG/5 ML SYRINGE IV PUSH ONE (12:00)
[2017-01-26] MEDS ORDERED: ESMOLOL HCL 100 MG/10 ML VIAL IV ONE (12:00)
[2017-01-26] MEDS ORDERED: PROPOFOL 200 MG/20 ML AMP IV ONE (12:00)
[2017-01-26] MEDS ORDERED: NORMOSOL R INJ 1,000 ML IV ONE (12:00)
[2017-01-26] MEDS ORDERED: DEXAMETHASONE SOD PHOS 4 MG/ML VIAL IV ONE (12:00)
[2017-01-26] MEDS ORDERED: MORPHINE SULFATE 4 MG/ML INJ IV PUSH PRN (12:00)
[2017-01-26] MEDS ORDERED: ROCURONIUM INJ 50 MG/5 ML SYRINGE IV PUSH ONE (12:00)
[2017-01-26] MEDS ORDERED: ONDANSETRON HCL 4 MG/2 ML VIAL IV PUSH ONE (12:00)
[2017-01-26] MEDS ORDERED: ACETAMINOPHEN/HYDROcodone 325 MG/10 MG TAB PO PRN (12:00)
[2017-01-26] MEDS ORDERED: NEOSTIGMINE 3 MG/3 ML SYR IV ONE (12:00)
[2017-01-26] MEDS ORDERED: SODIUM CHLORIDE 0.9% INJ 100 ML ONE (12:02)
[2017-01-26] MEDS ORDERED: ceFAZolin INJ 1,000 MG VIAL ONE (12:02)
[2017-01-26 12:12] LABS: AUTOMATED NEUTROPHIL # 5.4 TH/MM3 (1.8-7.7); BASOPHIL % 0.2 % (0.0-2.0); EOSINOPHIL # 0.1 TH/MM3 (0-0.4); EOSINOPHIL % 0.6 % (0.0-4.0); HEMATOCRIT 38.8 % (39.0-51.0); LYMPH % 62.6 % (9.0-44.0); LYMPHOCYTE # 10.2 TH/MM3 (1.0-4.8); MEAN CELL VOLUME 89.6 FL (80.0-100.0); MEAN CORPUSCULAR HEMOGLOBIN 29.7 PG (27.0-34.0); MEAN CORPUSCULAR HGB CONC 33.1 % (32.0-36.0); MONO % 3.6 % (0.0-8.0); PLATELET COUNT 121 TH/MM3 (150-450); RED BLOOD COUNT 4.33 MIL/MM3 (4.50-5.90); RED CELL DISTRIBUTION WIDTH 14.6 % (11.6-17.2); WHITE BLOOD COUNT 16.3 TH/MM3 (4.0-11.0)
[2017-01-26 12:15] LABS: HEMO FLAGS AUTO DIFF
[2017-01-26 12:26] LABS: BICARBONATE 25.1 MEQ/L (21.0-32.0); MAGNESIUM 1.9 MG/DL (1.5-2.5); POTASSIUM 4.1 MEQ/L (3.5-5.1)
[2017-01-26] MEDS ORDERED: niCARdipine INJ 25 MG in SODIUM CHLOR 0.9% 250 ML INJ 240 ML IV PRN (13:00)
[2017-01-26] MEDS ORDERED: LORazepam 2 MG/ML VIAL IV PUSH PRN (13:00)
[2017-01-26] MEDS: levETIRAcetam 500 MG TAB PO SCH (13:52)
[2017-01-26 13:53] LABS: BANDS 4 % (0-6); EOSINOPHILS 2 % (0-4); POLYS (SEG NEUTROPHILS) 39 % (16-70); WBC DIFF SAMPLE 100
[2017-01-26 13:54] LABS: PLATELET ESTIMATE SMEAR NORMAL (NORMAL); PLATELET MORPHOLOGY NORMAL (NORMAL); SCAN/DIFF FINAL DIFF MANUAL; SMUDGE CELLS PRESENT PRESENT
[2017-01-26] MEDS: ATORVASTATIN 20 MG TAB PO SCH (20:18)
[2017-01-26] MEDS: ACETAMINOPHEN/HYDROcodone 325 MG/10 MG TAB PO PRN (20:23)
[2017-01-27] VITALS (14 sets, daily range): BP systolic 147–174; BP diastolic 69–82; PULSE 51–90; RESP 13–24; TEMP 98.1–98.6; O2SAT 97–100
[2017-01-27] MEDS: levETIRAcetam 500 MG TAB PO SCH ×2 (00:42→11:58)
[2017-01-27] MEDS: NS + KCL 20 MEQ INJ 1,000 ML IV SCH ×2 (01:32→04:35)
[2017-01-27] MEDS: ACETAMINOPHEN/HYDROcodone 325 MG/10 MG TAB PO PRN ×4 (02:22→18:42)
[2017-01-27] MEDS: CHLORHEXIDINE GLUCONATE 2 % 1 PACK (2 CLOTHS) TOP SCH (03:45)
[2017-01-27 05:38] LABS: AUTOMATED NEUTROPHIL # 6.7 TH/MM3 (1.8-7.7); BASOPHIL # 0.1 TH/MM3 (0-0.2); BASOPHIL % 0.4 % (0.0-2.0); EOSINOPHIL # 0.1 TH/MM3 (0-0.4); EOSINOPHIL % 0.4 % (0.0-4.0); HEMATOCRIT 36.5 % (39.0-51.0); LYMPHOCYTE # 7.3 TH/MM3 (1.0-4.8); MEAN CELL VOLUME 89.7 FL (80.0-100.0); MEAN CORPUSCULAR HEMOGLOBIN 29.5 PG (27.0-34.0); MEAN CORPUSCULAR HGB CONC 32.8 % (32.0-36.0); MONO % 7.6 % (0.0-8.0); NEUT % 43.6 % (16.0-70.0); PLATELET COUNT 119 TH/MM3 (150-450); RED BLOOD COUNT 4.06 MIL/MM3 (4.50-5.90); RED CELL DISTRIBUTION WIDTH 14.7 % (11.6-17.2); WHITE BLOOD COUNT 15.3 TH/MM3 (4.0-11.0)
[2017-01-27 05:41] LABS: HEMO FLAGS AUTO DIFF
--- NOTE | 2017-01-27 05:46 | RADRPT ---
EXAM DATE/TIME: 01/27/2017 05:17 [facility] COMPARISON: No previous studies available for comparison. INDICATIONS : Follow up subdural hematoma. RADIATION DOSE: 44.44 CTDIvol (mGy) ; Tabletop CT Head MEDICAL HISTORY : Hypertension. Diabetes. SURGICAL HISTORY : None. ENCOUNTER: Subsequent ACUITY: 4 - 6 days PAIN SCALE: Non-responsive LOCATION: cranial TECHNIQUE: Multiple contiguous axial images were obtained of the head. Using automated exposure control and adj ustment of the mA and/or kV according to patient size, radiation dose was kept as low as reasonably a chievable to obtain optimal diagnostic quality images. DICOM format image data is available electro nically for review and comparison. FINDINGS: CEREBRUM: Bilateral subdural drains have been placed. There's been considerable reduction in the amount of extr a-axial fluid. No new hemorrhage is noted. There is extensive pneumocephalus. The ventricles are norm al for age. No evidence of midline shift, mass lesion, hemorrhage or acute infarction. Tiny amount o f extra-axial hemorrhage and debris remains in the temporal tips left greater than right. POSTERIOR FOSSA: The cerebellum and brainstem are intact. The 4th ventricle is midline. The cerebellopontine angle i s unremarkable. EXTRACRANIAL: The visualized portion of the orbits is intact. SKULL: The calvaria is intact. No evidence of skull fracture. CONCLUSION: 2 subdural drains are in good position. No new hemorrhage is noted. The previously seen hemorrhage is markedly reduced. No shift or evidence of significant edema . Gurmeet Isaacs MD on January 27, 2017 at 5:43 Board Certified Radiologist. This report was verified electronically.
[2017-01-27 06:05] LABS: BICARBONATE 25.3 MEQ/L (21.0-32.0); MAGNESIUM 2.1 MG/DL (1.5-2.5); POTASSIUM 3.9 MEQ/L (3.5-5.1)
[2017-01-27 07:45] LABS: BANDS 2 % (0-6); NEUTROPHIL # MANUAL DIFF 8.3 TH/MM3 (1.8-7.7); PLATELET ESTIMATE SMEAR LOW (NORMAL); PLATELET MORPHOLOGY NORMAL (NORMAL); POLYS (SEG NEUTROPHILS) 52 % (16-70); SCAN/DIFF FINAL DIFF MANUAL; WBC DIFF SAMPLE 100
[2017-01-27 07:46] LABS: SMUDGE CELLS PRESENT PRESENT
[2017-01-27] MEDS: INSULIN ASPART SUPPLEMENTAL SCALE SQ SCH ×4 (08:00→21:42)
[2017-01-27] MEDS: DOCUSATE SODIUM 50 MG/SENNA 8.6 MG TAB PO SCH ×2 (08:14→21:38)
[2017-01-27] MEDS: LISINOPRIL 20 MG TAB PO SCH (08:14)
[2017-01-27] MEDS: PANTOPRAZOLE SOD 40 MG DELAYED RELEASE TAB PO SCH (08:14)
[2017-01-27] MEDS: SODIUM CHLORIDE 0.9% FLUSH 10 ML FLUSH IV FLUSH SCH ×2 (08:15→21:37)
[2017-01-27] MEDS: hydrALAZINE HCL 20 MG/ML VIAL IV PUSH PRN (08:15)
--- NOTE | 2017-01-27 09:21 | HHI.NSPN ---
(Aj Kelly) History Chief Complaint: Headaches with bilateral subdural hemorrhages. (Aj Kelly) Interval History This is a 76-year-old gentleman with significant past medical history of diabetes, hypertension, recent CVA who has been on Xarelto since the diagnosis of the CVA. He has a longstanding history of chronic headaches but over the past couple weeks he has noted worsening of his headache which is now more global than cervical-occipital. 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 Significant effacement of the frontal parenchyma but no midline shift. Since admission to the emergency room, the patient notes his headache has improved with medication. Other than headache, he has also noted some scintillating visual changes and dizziness. No motor or sensory loss or dysfunction in the upper or lower extremities. 01/25: Pt awake and alert. Sitting up in chair. Complains of headaches with intermittent intensity. No n/v. No paresthesias. Family at bedside state he is not his usual cognitive self and has had difficulty with memory and mental sharpness. He has also been off balance lately, but no focal muscle weakness. 01/27: Patient awake and alert and appears more mentally sharp and the patient' s daughter agrees with this. He complains of headache on the vertex of his head. No nausea vomiting, weakness, or paresthesias. LIANNA drains in place and draining well. Patient requesting to get out of bed today. (Aj Kelly) Review of Systems General: Negative for: fever, chills, insomnia Respiratory: Negative for: shortness of breath, cough, sputum Cardiovascular: Negative for: chest pain Gastrointestinal: Negative for: nausea, vomitting, diarrhea, constipation ( Aj Kelly) Exam Results Vital Signs Date Time Temp Pulse Resp B/P (MAP) Pulse Ox O2 Delivery O2 Flow Rate FiO2 01/27/17 08:46 100 01/27/17 06:00 51 01/27/17 04:00 98.1 24 152/69 (96) 01/26/17 21:39 21 01/26/17 16:33 Nasal Cannula 2.00 Intake and Output 01/27/17 01/27/17 01/28/17 08:00 16:00 00:00 Intake Total 1470.8 ml Output Total 910 ml Balance 560.8 ml (Aj Kelly) Physical Examination Resp: CTA bilaterally Heart: NSR no murmurs Abd: Soft positive bs Skin: No cyanosis or erythema. Incisions clean and dry without any signs of infection. Bilateral LIANNA drains in place. Muscle: Moves all 4 extremities with symmetric strength. Neuro: Pt awake and alert. Pupils equal. Speech clear and appropriate. Patient is more conversive and appears more sharp and thought process. Sensation intact. Face symmetric. Pupils 3 mm bilaterally reactive bilaterally. (Aj Kelly) Lab, Micro, Other Results Last Impressions Head CT 01/27/17 0600 Signed Impressions: Service Date/Time: Friday, January 27, 2017 05:17 - CONCLUSION: 2 subdural drains are in good position. No new hemorrhage is noted. The previously seen hemorrhage is markedly reduced. No shift or evidence of significant edema . Gurmeet Isaacs MD Chest X-Ray 01/22/17 1705 Signed Impressions: Service Date/Time: Sunday, January 22, 2017 17:14 - CONCLUSION: Hypoinflation with minimal bibasilar atelectatic changes. Maury Pizano MD Laboratory Tests Test 01/26/17 11:54 01/27/17 05:07 White Blood Count 16.3 TH/MM3 15.3 TH/MM3 Red Blood Count 4.33 MIL/MM3 4.06 MIL/MM3 Hemoglobin 12.9 GM/DL 12.0 GM/DL Hematocrit 38.8 % 36.5 % Mean Corpuscular Volume 89.6 FL 89.7 FL Mean Corpuscular Hemoglobin 29.7 PG 29.5 PG Mean Corpuscular Hemoglobin Concent 33.1 % 32.8 % Red Cell Distribution Width 14.6 % 14.7 % Platelet Count 121 TH/MM3 119 TH/MM3 Mean Platelet Volume 6.3 FL 6.3 FL Neutrophils (%) (Auto) 33.0 % 43.6 % Lymphocytes (%) (Auto) 62.6 % 48.0 % Monocytes (%) (Auto) 3.6 % 7.6 % Eosinophils (%) (Auto) 0.6 % 0.4 % Basophils (%) (Auto) 0.2 % 0.4 % Neutrophils # (Auto) 5.4 TH/MM3 6.7 TH/MM3 Lymphocytes # (Auto) 10.2 TH/MM3 7.3 TH/MM3 Monocytes # (Auto) 0.6 TH/MM3 1.2 TH/MM3 Eosinophils # (Auto) 0.1 TH/MM3 0.1 TH/MM3 Basophils # (Auto) 0.0 TH/MM3 0.1 TH/MM3 CBC Comment AUTO DIFF AUTO DIFF Differential Total Cells Counted 100 100 Neutrophils % (Manual) 39 % 52 % Band Neutrophils % 4 % 2 % Lymphocytes % 54 % 41 % Monocytes % 1 % 5 % Eosinophils % 2 % Neutrophils # (Manual) 7.0 TH/MM3 8.3 TH/MM3 Differential Comment FINAL DIFF MANUAL FINAL DIFF MANUAL Smudge Cells PRESENT PRESENT Platelet Estimate NORMAL LOW Platelet Morphology Comment NORMAL NORMAL Red Cell Morphology Comment NORMAL NORMAL Blood Urea Nitrogen 11 MG/DL 10 MG/DL Creatinine 0.91 MG/DL 1.08 MG/DL Random Glucose 176 MG/DL 136 MG/DL Calcium Level 8.2 MG/DL 8.0 MG/DL Magnesium Level 1.9 MG/DL 2.1 MG/DL Sodium Level 140 MEQ/L 140 MEQ/L Potassium Level 4.1 MEQ/L 3.9 MEQ/L Chloride Level 105 MEQ/L 105 MEQ/L Carbon Dioxide Level 25.1 MEQ/L 25.3 MEQ/L Anion Gap 10 MEQ/L 10 MEQ/L Estimat Glomerular Filtration Rate 81 ML/MIN 66 ML/MIN (Aj Kelly) Medical Decision Making Impression and Plan A: 76 y/o M with bilateral subdural hemorrhage, a mixture of chronic and acute hemorrhage. Hx of Xarelto use. This has been on hold since admission. Right parietal rachael hole placement for subdural hemorrhage evacuation; left parietal bur hole placement for subdural hemorrhage evacuation on 01/26/17. P: OOB with assistance to chair. Ambulate with PT Continue with LIANNA drains Continue with Neuro checks. Discussed with pts daughter at bedside who is also pleased with his progress so far. (Aj Kelly) Attending Statement The exam, history, and the medical decision-making described in the above note were completed with the assistance of the mid-level provider. I reviewed and agree with the findings presented. I attest that I had a [id number] encounter with the patient on the same day, and personally performed and documented my assessment and findings in the medical record. Overall state his headaches are better and doing well from a neurologic standpoint. Follow up CT scan head with significant improvement of the bilateral subdural collections with drains in place. We will discontinue IV fluids and Gonzalez catheter in increased activity status as tolerated. Discontinue bilateral subdural drains tomorrow. (Henry Medina MD) Aj Kelly Jan 27, 2017 09:21 Henry Medina MD Jan 27, 2017 14:48
--- NOTE | 2017-01-27 15:43 | HHI.PR ---
Subjective Remarks Follow-up for bilateral subdural hemorrhage status post bilateral bilateral forward hemorrhage evacuation. Patient is currently doing well. No acute concerns. Denies any chest pain, shortness of breath, fever or chills. Objective Vitals Vital Signs Date Time Temp Pulse Resp B/P (MAP) Pulse Ox O2 Delivery O2 Flow Rate FiO2 01/27/17 14:00 66 01/27/17 12:00 98.6 64 19 148/82 (104) 99 01/27/17 12:00 64 01/27/17 10:00 81 01/27/17 08:46 100 01/27/17 08:00 57 01/27/17 08:00 98.6 57 13 174/77 (109) 100 01/27/17 06:00 51 01/27/17 04:00 98.1 59 24 152/69 (96) 97 01/27/17 04:00 59 01/27/17 02:00 64 01/27/17 00:00 98.2 62 13 147/74 (98) 99 01/27/17 00:00 62 01/26/17 22:00 67 01/26/17 21:39 98 21 01/26/17 20:00 87 01/26/17 20:00 98.4 87 25 140/78 (98) 97 01/26/17 18:00 87 01/26/17 16:33 98 Nasal Cannula 2.00 01/26/17 16:00 98.6 95 20 125/78 (94) 99 01/26/17 16:00 95 I/O 01/26/17 01/26/17 01/26/17 01/27/17 01/27/17 01/27/17 07:00 15:00 23:00 07:00 15:00 23:00 Intake Total 1377 ml 540 ml 1470.8 ml Output Total 1420 ml 1300 ml 910 ml Balance -43 ml -760 ml 560.8 ml Intake Oral 0 ml 440 ml 240 ml IV Total 1377 ml 100 ml 1230.8 ml Output Urine Total 1300 ml 1100 ml 850 ml Drainage Total 70 ml 200 ml 60 ml Estimated Blood Loss 50 ml # Voids 2 # Bowel Movements 0 Result Diagram: 01/27/17 05001/27/17 050 Imaging Last Impressions Head CT 01/27/17 06 Signed Impressions: Service Date/Time: Friday, January 27, 2017 05:17 - CONCLUSION: 2 subdural drains are in good position. No new hemorrhage is noted. The previously seen hemorrhage is markedly reduced. No shift or evidence of significant edema . Gurmeet Isaacs MD Chest X-Ray 01/22/17 1705 Signed Impressions: Service Date/Time: Sunday, January 22, 2017 17:14 - CONCLUSION: Hypoinflation with minimal bibasilar atelectatic changes. Maury Pizano MD Objective Remarks GENERAL: Alert, oriented 3, NAD. SKIN: Warm and dry. HEAD: Normocephalic. Bilateral LIANNA drain in place EYES: No scleral icterus. No injection or drainage. NECK: Supple, trachea midline. No JVD or lymphadenopathy. CARDIOVASCULAR: Regular rate and rhythm without murmurs, gallops, or rubs. RESPIRATORY: Breath sounds equal bilaterally. No accessory muscle use. GASTROINTESTINAL: Abdomen soft, non-tender, nondistended. MUSCULOSKELETAL: No cyanosis, or edema. Neurological: Awake, alert, oriented 3. Normal speech. No focal neurological deficits. Moves upper and lower extremities spontaneously. BACK: Nontender without obvious deformity. No CVA tenderness. Procedures None A/P Problem List: (1) Subdural hematoma ICD Code: I62.00 - Nontraumatic subdural hemorrhage, unspecified (2) Thrombocytopenia ICD Code: D69.6 - Thrombocytopenia, unspecified (3) Leukocytosis ICD Code: D72.829 - Elevated white blood cell count, unspecified (4) Dehydration ICD Code: E86.0 - Dehydration (5) HTN (hypertension) ICD Code: I10 - Essential (primary) hypertension (6) DM (diabetes mellitus) ICD Code: E11.9 - Type 2 diabetes mellitus without complications Assessment and Plan Mr. Victor is a pleasant 76-year-old male with a history of hypertension, diabetes, CVA, CLL who was admitted to the hospital on 01/22/2017 due to headache and subsequent finding of bilateral subdural hemorrhage. Patient has been on Xarelto due to atrial fibrillation and stroke prevention. Neurosurgery has been following patient closely. Patient underwent surgical intervention on 01/26/2017. - Subdural hemorrhage, bilateral - Xarelto on hold, hematology following. - Bilateral parietal rachael hole placement for subdural hemorrhage evacuation on 01/26/2017. - LIANNA drain will likely be discontinued tomorrow 01/28/2017. - Hypertension - continue lisinopril 20 mg daily. May need to add low-dose calcium channel marie such as amlodipine 5 mg daily. - Thrombocytopenia - platelet count 119K on 01/27/2017. - CLL with lymphocytosis - Asymptomatic. Outpatient follow up. - History of CVA - Patient may need anti-coagulation in future or possibly Aspirin/plavix for stroke prevention. - Continue Lipitor 20mg QHS. - Diabetes mellitus - continue sliding scale insulin. Blood sugar well controlled. Goal blood sugar 140-180. Full code. Ambulation. No pharmacological DVT prophylaxis unless directed by neurosurgery. Huseyin Quiros DO Jan 27, 2017 3:43 pm
[2017-01-27] MEDS: ATORVASTATIN 20 MG TAB PO SCH (21:37)
--- NOTE | 2017-01-27 23:12 | PD.ONC.PN ---
Subjective Subjective Remarks s/p rachael hole surgery LIANNA drains in place no dyspnea appears comfortable Objective Data Date Time Temp Pulse Resp B/P (MAP) Pulse Ox O2 Delivery O2 Flow Rate FiO2 01/27/17 20:26 98 01/27/17 18:00 90 01/27/17 16:00 74 01/27/17 16:00 98.6 62 16 149/75 (99) 100 01/27/17 14:00 66 01/27/17 12:00 98.6 64 19 148/82 (104) 99 01/27/17 12:00 64 01/27/17 10:00 81 01/27/17 08:46 100 01/27/17 08:00 57 01/27/17 08:00 98.6 57 13 174/77 (109) 100 01/27/17 06:00 51 01/27/17 04:00 98.1 59 24 152/69 (96) 97 01/27/17 04:00 59 01/27/17 02:00 64 01/27/17 00:00 98.2 62 13 147/74 (98) 99 01/27/17 00:00 62 Result Diagram: 01/27/17 0507 01/27/17 0507 Laboratory Results Laboratory Tests Test 01/27/17 05:07 White Blood Count 15.3 TH/MM3 Red Blood Count 4.06 MIL/MM3 Hemoglobin 12.0 GM/DL Hematocrit 36.5 % Mean Corpuscular Volume 89.7 FL Mean Corpuscular Hemoglobin 29.5 PG Mean Corpuscular Hemoglobin Concent 32.8 % Red Cell Distribution Width 14.7 % Platelet Count 119 TH/MM3 Mean Platelet Volume 6.3 FL Neutrophils (%) (Auto) 43.6 % Lymphocytes (%) (Auto) 48.0 % Monocytes (%) (Auto) 7.6 % Eosinophils (%) (Auto) 0.4 % Basophils (%) (Auto) 0.4 % Neutrophils # (Auto) 6.7 TH/MM3 Lymphocytes # (Auto) 7.3 TH/MM3 Monocytes # (Auto) 1.2 TH/MM3 Eosinophils # (Auto) 0.1 TH/MM3 Basophils # (Auto) 0.1 TH/MM3 CBC Comment AUTO DIFF Differential Total Cells Counted 100 Neutrophils % (Manual) 52 % Band Neutrophils % 2 % Lymphocytes % 41 % Monocytes % 5 % Neutrophils # (Manual) 8.3 TH/MM3 Differential Comment FINAL DIFF MANUAL Smudge Cells PRESENT Platelet Estimate LOW Platelet Morphology Comment NORMAL Red Cell Morphology Comment NORMAL Blood Urea Nitrogen 10 MG/DL Creatinine 1.08 MG/DL Random Glucose 136 MG/DL Calcium Level 8.0 MG/DL Magnesium Level 2.1 MG/DL Sodium Level 140 MEQ/L Potassium Level 3.9 MEQ/L Chloride Level 105 MEQ/L Carbon Dioxide Level 25.3 MEQ/L Anion Gap 10 MEQ/L Estimat Glomerular Filtration Rate 66 ML/MIN Imaging Studies Last [address] 01/27/17 0600 Signed Impressions: Service Date/Time: Friday, January 27, 2017 05:17 - CONCLUSION: 2 subdural drains are in good position. No new hemorrhage is noted. The previously seen hemorrhage is markedly reduced. No shift or evidence of significant edema . Gurmeet Isaacs MD Administered Medications Medications (Trade) Dose Ordered Sig/Adam Route PRN Reason Start Time Stop Time Status Last Admin Dose Admin Insulin Aspart (NovoLOG SUPPLEMENTAL SCALE) 1 ACHS SLIDING SCALE SQ 01/22/17 21:00 01/27/17 21:42 Senna/Docusate Sodium (Marlys-Colace) 1 tab BID PO 01/22/17 21:00 01/27/17 21:38 Sennosides (Senokot) 17.2 mg Q12H PRN PO Moderate constipation 01/22/17 19:30 01/24/17 22:20 Atorvastatin Calcium (Lipitor) 20 mg HS PO 01/22/17 21:00 01/27/17 21:37 Lisinopril (Prinivil) 20 mg DAILY PO 01/23/17 09:00 01/27/17 08:14 Morphine Sulfate (Morphine Inj) 3 mg Q3H PRN IV PUSH Pain 6-10 01/24/17 04:30 01/24/17 22:08 Acetaminophen (Tylenol) 650 mg Q6H PRN PO HEADACHE/FEVER > 101.5 01/25/17 17:00 01/25/17 22:04 Sodium Chloride (NS Flush) 2 ml BID IV FLUSH 01/26/17 21:00 01/27/17 21:37 Levetriacetam (Keppra) 500 mg Q12H PO 01/26/17 13:00 01/27/17 11:58 Pantoprazole Sodium (Protonix) 40 mg DAILY PO 01/27/17 09:00 01/27/17 08:14 Acetaminophen/ Hydrocodone Bitart ([place] 10-325 Mg) 1 tab Q4H PRN PO SEE LABEL COMMENTS 01/26/17 12:00 01/27/17 18:42 Nicardipine HCl 25 mg/Sodium Chloride 250 ml @ 50 mls/hr TITRATE PRN IV Blood pressure management 01/26/17 13:00 01/26/17 11:30 Hydralazine HCl (Apresoline Inj) 10 mg Q1HR PRN IV PUSH sbp>160 01/26/17 13:00 01/27/17 08:15 Objective Remarks GENERAL: nad SKIN: Warm and dry. LYMPHATIC: No adenopathy. CARDIOVASCULAR: Regular rate and rhythm without murmurs. RESPIRATORY: Breath sounds equal bilaterally. No accessory muscle use. GASTROINTESTINAL: Abdomen soft, non-tender, nondistended. EXTREMITIES: No cyanosis, or edema. Assessment/Plan Problem List: (1) Thrombocytopenia ICD Codes: D69.6 - Thrombocytopenia, unspecified (2) Leukocytosis ICD Codes: D72.829 - Elevated white blood cell count, unspecified (3) Subdural hematoma ICD Codes: I62.00 - Nontraumatic subdural hemorrhage, unspecified Assessment 76-year-old male with a past medical history of hypertension, diabetes, history of CLL, history of CVA who was on Xarelto and developed bilateral subdural hematomas. 1. Subdural hematomas while being on Xarelto. Xarelto was discontinued - s/p rachael hole surgery 2. CLL with lymphocytosis. He does not have any lymphadenopathy. No cytopenias. He is completely asymptomatic. CRUZ Stage 0 - abdominal U/S to evaluate for splenomegaly at a later date 3. History of CVA.-- no anticoagulation for now. 4. History of hypertension. 5. Diabetes type 2. Clay Iglesias MD Jan 27, 2017 23:12
[2017-01-28] VITALS (11 sets, daily range): BP systolic 130–185; BP diastolic 68–90; PULSE 56–80; RESP 14–21; TEMP 96.6–98.4; O2SAT 95–99
[2017-01-28] MEDS: levETIRAcetam 500 MG TAB PO SCH ×3 (00:31→23:52)
[2017-01-28] MEDS: CHLORHEXIDINE GLUCONATE 2 % 1 PACK (2 CLOTHS) TOP SCH (03:54)
--- NOTE | 2017-01-28 07:51 | HHI.PR ---
Subjective Remarks Follow-up for bilateral subdural hemorrhage status post bilateral bilateral forward hemorrhage evacuation. Patient is doing well. No acute concerns. Per RN, he had small amount of drainage from LIANNA drain. No fever, chills. Objective Vitals Vital Signs Date Time Temp Pulse Resp B/P (MAP) Pulse Ox O2 Delivery O2 Flow Rate FiO2 01/28/17 06:00 66 01/28/17 04:00 97.4 58 16 130/68 (88) 97 01/28/17 04:00 58 01/28/17 02:00 56 01/28/17 00:00 66 01/28/17 00:00 96.6 66 17 185/86 (119) 99 01/27/17 22:00 62 01/27/17 20:26 98 01/27/17 20:00 98.4 74 15 154/79 (104) 98 01/27/17 20:00 74 01/27/17 18:00 90 01/27/17 16:00 74 01/27/17 16:00 98.6 62 16 149/75 (99) 100 01/27/17 14:00 66 01/27/17 12:00 98.6 64 19 148/82 (104) 99 01/27/17 12:00 64 01/27/17 10:00 81 01/27/17 08:46 100 01/27/17 08:00 57 01/27/17 08:00 98.6 57 13 174/77 (109) 100 I/O 01/27/17 01/27/17 01/27/17 01/28/17 01/28/17 01/28/17 07:00 15:00 23:00 07:00 15:00 23:00 Intake Total 1470.8 ml 1375 ml 600 ml Output Total 910 ml 550 ml 40 ml Balance 560.8 ml 825 ml 560 ml Intake Oral 240 ml 880 ml 600 ml IV Total 1230.8 ml 495 ml Output Urine Total 850 ml 500 ml Drainage Total 60 ml 50 ml 40 ml # Voids 3 5 # Bowel Movements 3 Result Diagram: 01/27/17 0507 01/27/17 0507 Imaging Last Impressions Head CT 01/27/17 06 Signed Impressions: Service Date/Time: Friday, January 27, 2017 05:17 - CONCLUSION: 2 subdural drains are in good position. No new hemorrhage is noted. The previously seen hemorrhage is markedly reduced. No shift or evidence of significant edema . Gurmeet Isaacs MD Chest X-Ray 01/22/17 1705 Signed Impressions: Service Date/Time: Wednesday, January 22, 2017 17:14 - CONCLUSION: Hypoinflation with minimal bibasilar atelectatic changes. Maury Pizano MD Objective Remarks GENERAL: Alert, oriented 3, NAD. SKIN: Warm and dry. HEAD: Normocephalic. Bilateral LIANNA drain in place EYES: No scleral icterus. No injection or drainage. NECK: Supple, trachea midline. No JVD or lymphadenopathy. CARDIOVASCULAR: Regular rate and rhythm without murmurs, gallops, or rubs. RESPIRATORY: Breath sounds equal bilaterally. No accessory muscle use. GASTROINTESTINAL: Abdomen soft, non-tender, nondistended. MUSCULOSKELETAL: No cyanosis, or edema. Neurological: Awake, alert, oriented 3. Normal speech. No focal neurological deficits. Moves upper and lower extremities spontaneously. BACK: Nontender without obvious deformity. No CVA tenderness. Procedures None A/P Problem List: (1) Subdural hematoma ICD Code: I62.00 - Nontraumatic subdural hemorrhage, unspecified (2) Thrombocytopenia ICD Code: D69.6 - Thrombocytopenia, unspecified (3) Leukocytosis ICD Code: D72.829 - Elevated white blood cell count, unspecified (4) Dehydration ICD Code: E86.0 - Dehydration (5) HTN (hypertension) ICD Code: I10 - Essential (primary) hypertension (6) DM (diabetes mellitus) ICD Code: E11.9 - Type 2 diabetes mellitus without complications Assessment and Plan Mr. Victor is a pleasant 76-year-old male with a history of hypertension, diabetes, CVA, CLL who was admitted to the hospital on 01/22/2017 due to headache and subsequent finding of bilateral subdural hemorrhage. Patient has been on Xarelto due to atrial fibrillation and stroke prevention. Neurosurgery has been following patient closely. Patient underwent surgical intervention on 01/26/2017. - Subdural hemorrhage, bilateral - Xarelto on hold, hematology following. - Bilateral parietal rachael hole placement for subdural hemorrhage evacuation on 01/26/2017. - LIANNA drain will likely be discontinued today 01/28/2017. - Continue Keppra 500mg Q12hrs. - Hypertension - continue lisinopril 20 mg daily. Added amlodipine 5 mg daily. - Thrombocytopenia - platelet count 119K on 01/27/2017. - CLL with lymphocytosis - Asymptomatic. Outpatient follow up. - History of CVA - Patient may need anti-coagulation in future or possibly Aspirin/plavix for stroke prevention. - Continue Lipitor 20mg QHS. - Diabetes mellitus - continue sliding scale insulin. Goal blood sugar 140-180. - Will add low dose Levemir 5 units QHS. Full code. Ambulation. No pharmacological DVT prophylaxis unless directed by neurosurgery. Huseyin Quiros DO Jan 28, 2017 07:51
--- NOTE | 2017-01-28 08:26 | HHI.NSPN ---
(Aj Kelly) History Chief Complaint: Headaches with bilateral subdural hemorrhages. (Aj Kelly) Interval History This is a 76-year-old gentleman with significant past medical history of diabetes, hypertension, recent CVA who has been on Xarelto since the diagnosis of the CVA. He has a longstanding history of chronic headaches but over the past couple weeks he has noted worsening of his headache which is now more global than cervical-occipital. 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 Significant effacement of the frontal parenchyma but no midline shift. Since admission to the emergency room, the patient notes his headache has improved with medication. Other than headache, he has also noted some scintillating visual changes and dizziness. No motor or sensory loss or dysfunction in the upper or lower extremities. 01/25: Pt awake and alert. Sitting up in chair. Complains of headaches with intermittent intensity. No n/v. No paresthesias. Family at bedside state he is not his usual cognitive self and has had difficulty with memory and mental sharpness. He has also been off balance lately, but no focal muscle weakness. 01/27: Patient awake and alert and appears more mentally sharp and the patient' s daughter agrees with this. He complains of headache on the vertex of his head. No nausea vomiting, weakness, or paresthesias. LIANNA drains in place and draining well. Patient requesting to get out of bed today. 01/28: Pt with some headaches vertex of head. No n/v, muscle weakness, or paresthesias in face or extremities. (Aj Kelly) Review of Systems General: Negative for: fever, chills, insomnia Respiratory: Negative for: shortness of breath, cough, sputum Cardiovascular: Negative for: chest pain Gastrointestinal: Negative for: nausea, vomitting, diarrhea, constipation ( Aj Kelly) Exam Results Vital Signs Date Time Temp Pulse Resp B/P (MAP) Pulse Ox O2 Delivery O2 Flow Rate FiO2 01/28/17 06:00 66 01/28/17 04:00 97.4 16 130/68 (88) 97 01/26/17 21:39 21 01/26/17 16:33 Nasal Cannula 2.00 Intake and Output 01/28/17 01/28/17 01/29/17 08:00 16:00 00:00 Intake Total 600 ml Output Total 40 ml Balance 560 ml (Aj Kelly) Physical Examination Resp: CTA bilaterally Heart: NSR no murmurs Abd: Soft positive bs Skin: No cyanosis or erythema. Incisions clean and dry without any signs of infection. Bilateral LIANNA drains in place. Muscle: Moves all 4 extremities with symmetric strength. Neuro: Pt awake and alert. Pupils equal. Speech clear and appropriate. Patient is more conversive and appears more sharp and thought process. Sensation intact. Face symmetric. Pupils 3 mm bilaterally reactive bilaterally. (Aj Kelly) Lab, Micro, Other Results Last Impressions Head CT 01/27/17 0600 Signed Impressions: Service Date/Time: Friday, January 27, 2017 05:17 - CONCLUSION: 2 subdural drains are in good position. No new hemorrhage is noted. The previously seen hemorrhage is markedly reduced. No shift or evidence of significant edema . Gurmeet Isaacs MD Chest X-Ray 01/22/17 1705 Signed Impressions: Service Date/Time: Sunday, January 22, 2017 17:14 - CONCLUSION: Hypoinflation with minimal bibasilar atelectatic changes. Maury Pizano MD (Aj Kelly) Medical Decision Making Impression and Plan A: 76 y/o M with bilateral subdural hemorrhage, a mixture of chronic and acute hemorrhage. Hx of Xarelto use. This has been on hold since admission. Right parietal rachael hole placement for subdural hemorrhage evacuation; left parietal bur hole placement for subdural hemorrhage evacuation on 01/26/17. P: Continue to get OOB. Discontinue LIANNA drains. Order in for Lidocaine 2% with epi. Continue with Neuro checks. (Aj Kelly) Attending Statement The exam, history, and the medical decision-making described in the above note were completed with the assistance of the mid-level provider. I reviewed and agree with the findings presented. I attest that I had a [id number] encounter with the patient on the same day, and personally performed and documented my assessment and findings in the medical record. (Henry Medina MD) Aj Kelly Jan 28, 2017 08:26 Henry Medina MD Jan 28, 2017 14:47
[2017-01-28] MEDS ORDERED: LIDOCAINE 2%/EPINEPHrine 1:100,000 30ML MDV INFIL ONE (08:30)
[2017-01-28] MEDS: SODIUM CHLORIDE 0.9% FLUSH 10 ML FLUSH IV FLUSH SCH ×2 (09:00→19:48)
[2017-01-28] MEDS: amLODIPine BESYLATE 5 MG TAB PO SCH (09:31)
[2017-01-28] MEDS: PANTOPRAZOLE SOD 40 MG DELAYED RELEASE TAB PO SCH (09:31)
[2017-01-28] MEDS: LISINOPRIL 20 MG TAB PO SCH (09:31)
[2017-01-28] MEDS: DOCUSATE SODIUM 50 MG/SENNA 8.6 MG TAB PO SCH ×2 (09:31→19:48)
[2017-01-28] MEDS: INSULIN ASPART SUPPLEMENTAL SCALE SQ SCH ×4 (09:39→19:49)
[2017-01-28] MEDS: ACETAMINOPHEN/HYDROcodone 325 MG/10 MG TAB PO PRN ×2 (09:40→16:16)
[2017-01-28] MEDS ORDERED: LIDOCAINE 2%/EPINEPHrine 1:100,000 20ML MDV INFIL ONE (10:30)
--- NOTE | 2017-01-28 15:00 | PD.ONC.PN ---
Subjective Subjective Remarks Afebrile Denies headache but has some pain where LIANNA drains were removed No bleeding Anxious to be transferred Objective Data Date Time Temp Pulse Resp B/P (MAP) Pulse Ox O2 Delivery O2 Flow Rate FiO2 01/28/17 14:05 73 01/28/17 12:00 98.4 73 18 147/89 (108) 98 01/28/17 10:19 16 01/28/17 10:00 68 01/28/17 08:00 97.4 60 14 171/90 (117) 95 01/28/17 08:00 60 01/28/17 06:00 66 01/28/17 04:00 97.4 58 16 130/68 (88) 97 01/28/17 04:00 58 01/28/17 02:00 56 01/28/17 00:00 66 01/28/17 00:00 96.6 66 17 185/86 (119) 99 01/27/17 22:00 62 01/27/17 20:26 98 01/27/17 20:00 98.4 74 15 154/79 (104) 98 01/27/17 20:00 74 01/27/17 18:00 90 01/27/17 16:00 74 01/27/17 16:00 98.6 62 16 149/75 (99) 100 01/28/17 01/28/17 01/28/17 06:59 14:59 22:59 Intake Total 600 ml Output Total 40 ml Balance 560 ml Result Diagram: 01/27/17 0507 01/27/17 0507 Administered Medications Medications (Trade) Dose Ordered Sig/Adam Route PRN Reason Start Time Stop Time Status Last Admin Dose Admin Insulin Aspart (NovoLOG SUPPLEMENTAL SCALE) 1 ACHS SLIDING SCALE SQ 01/22/17 21:00 01/28/17 12:55 Senna/Docusate Sodium (Marlys-Colace) 1 tab BID PO 01/22/17 21:00 01/28/17 09:31 Sennosides (Senokot) 17.2 mg Q12H PRN PO Moderate constipation 01/22/17 19:30 01/24/17 22:20 Bisacodyl (Dulcolax Supp) 10 mg DAILY PRN RECTAL SEVERE CONSITIPATION 01/22/17 19:30 01/28/17 13:03 Atorvastatin Calcium (Lipitor) 20 mg HS PO 01/22/17 21:00 01/27/17 21:37 Lisinopril (Prinivil) 20 mg DAILY PO 01/23/17 09:00 01/28/17 09:31 Acetaminophen (Tylenol) 650 mg Q6H PRN PO HEADACHE/FEVER > 101.5 01/25/17 17:00 01/25/17 22:04 Sodium Chloride (NS Flush) 2 ml BID IV FLUSH 01/26/17 21:00 01/28/17 09:00 Levetriacetam (Keppra) 500 mg Q12H PO 01/26/17 13:00 01/28/17 12:56 Magnesium Hydroxide (Milk Of Harjit Liq) 30 ml DAILY PRN PO MILD CONSTIPATION 01/26/17 11:15 01/28/17 05:28 Pantoprazole Sodium (Protonix) 40 mg DAILY PO 01/27/17 09:00 01/28/17 09:31 Acetaminophen/ Hydrocodone Bitart ([place] 10-325 Mg) 1 tab Q4H PRN PO SEE LABEL COMMENTS 01/26/17 12:00 01/28/17 09:40 Nicardipine HCl 25 mg/Sodium Chloride 250 ml @ 50 mls/hr TITRATE PRN IV Blood pressure management 01/26/17 13:00 01/26/17 11:30 Hydralazine HCl (Apresoline Inj) 10 mg Q1HR PRN IV PUSH sbp>160 01/26/17 13:00 01/27/17 08:15 Amlodipine Besylate (Norvasc) 5 mg DAILY PO 01/28/17 09:00 01/28/17 09:31 Objective Remarks GENERAL: Older male, sitting up in bed talking to visitors in no acute distress. SKIN: Warm and dry. Shantel to scalp. No oozing noted. HEAD: Normocephalic. EYES: No injection or drainage. NECK: Supple, trachea midline. CARDIOVASCULAR: Regular rate and rhythm without murmurs. RESPIRATORY: Clear anteriorly. Breathing unlabored. GASTROINTESTINAL: Abdomen soft, non-tender, nondistended. EXTREMITIES: No cyanosis, or edema. MUSCULOSKELETAL: Adequate muscle tone. NEUROLOGICAL: No obvious focal deficit. Awake, alert, and oriented x3. Assessment/Plan Problem List: (1) Thrombocytopenia ICD Codes: D69.6 - Thrombocytopenia, unspecified Plan: -- Controlled - Monitor CBC (2) Subdural hematoma ICD Codes: I62.00 - Nontraumatic subdural hemorrhage, unspecified Plan: -- s/p rachael hole placement by neurosurgery for evacuation of hematomas (3) Stroke ICD Codes: I63.9 - Stroke Status: Acute Plan: -- Was previously on Xarelto Assessment 76-year-old male with a past medical history of hypertension, diabetes, history of CLL, history of CVA who was on Xarelto and developed bilateral subdural hematomas. Plan 1. Monitor CBC 2. No anticoagulation 3. Supportive care. Attending Statement The exam, history, and the medical decision-making described in the above note were completed with the assistance of the mid-level provider. I reviewed and agree with the findings presented. I attest that I had a [id number] encounter with the patient on the same day, and personally performed and documented my assessment and findings in the medical record no clear indication for anti-coagulation hold AC for now o/p evaluation CLL management outpatient s/p rachael-hole surgery Hb stable continue to monitor d/w rn o/n events reviewed Sofía Edwards Jan 28, 2017 15:00 Clay Iglesias MD Jan 28, 2017 22:29
[2017-01-28] MEDS: ATORVASTATIN 20 MG TAB PO SCH (19:48)
[2017-01-28] MEDS: SENNOSIDES 8.6 MG TAB PO PRN (19:48)
[2017-01-28] MEDS: hydrALAZINE HCL 20 MG/ML VIAL IV PUSH PRN (20:07)
[2017-01-28] MEDS ORDERED: INSULIN DETEMIR 100 UNITS/ML VIAL SQ SCH (21:00)
[2017-01-29] VITALS: BP 124/76; PULSE 92; RESP 20; TEMP 97.9; O2SAT 96
[2017-01-29 04:00] VITALS: BP 101/58; PULSE 64; RESP 18; TEMP 98.5; O2SAT 97
[2017-01-29] MEDS: CHLORHEXIDINE GLUCONATE 2 % 1 PACK (2 CLOTHS) TOP SCH (04:00)
[2017-01-29 08:00] VITALS: BP 150/84; PULSE 68; PULSE 85; RESP 17; TEMP 98.3; O2SAT 96
[2017-01-29] MEDS: INSULIN ASPART SUPPLEMENTAL SCALE SQ SCH (08:00)
[2017-01-29 08:29] VITALS: O2SAT 98
--- NOTE | 2017-01-29 09:06 | HHI.NSPN ---
(Aj Kelly) History Chief Complaint: Headaches with bilateral subdural hemorrhages. (Aj Kelly) Interval History This is a 76-year-old gentleman with significant past medical history of diabetes, hypertension, recent CVA who has been on Xarelto since the diagnosis of the CVA. He has a longstanding history of chronic headaches but over the past couple weeks he has noted worsening of his headache which is now more global than cervical-occipital. 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 Significant effacement of the frontal parenchyma but no midline shift. Since admission to the emergency room, the patient notes his headache has improved with medication. Other than headache, he has also noted some scintillating visual changes and dizziness. No motor or sensory loss or dysfunction in the upper or lower extremities. 01/25: Pt awake and alert. Sitting up in chair. Complains of headaches with intermittent intensity. No n/v. No paresthesias. Family at bedside state he is not his usual cognitive self and has had difficulty with memory and mental sharpness. He has also been off balance lately, but no focal muscle weakness. 01/27: Patient awake and alert and appears more mentally sharp and the patient' s daughter agrees with this. He complains of headache on the vertex of his head. No nausea vomiting, weakness, or paresthesias. LIANNA drains in place and draining well. Patient requesting to get out of bed today. 01/28: Pt with some headaches vertex of head. No n/v, muscle weakness, or paresthesias in face or extremities. 01/29: Pt states headaches resolved. No n/v. States slept well. No weakness or paresthesias. Wants to go home. (Aj Kelly) Review of Systems General: Negative for: fever, chills, insomnia Respiratory: Negative for: shortness of breath, cough, sputum Cardiovascular: Negative for: chest pain Gastrointestinal: Negative for: nausea, vomitting, diarrhea, constipation ( Aj Kelly) Exam Results Vital Signs Date Time Temp Pulse Resp B/P (MAP) Pulse Ox O2 Delivery O2 Flow Rate FiO2 01/29/17 08:29 98 01/29/17 04:00 64 01/29/17 04:00 98.5 18 101/58 (72) 01/28/17 20:23 21 01/26/17 16:33 Nasal Cannula 2.00 Intake and Output 01/29/17 01/29/17 01/30/17 08:00 16:00 00:00 Intake Total 480 ml Balance 480 ml (Aj Kelly) Physical Examination Resp: CTA bilaterally Heart: NSR no murmurs Abd: Soft positive bs Skin: No cyanosis or erythema. Incisions clean and dry without any signs of infection. Bilateral LIANNA drains in place. Muscle: Moves all 4 extremities with symmetric strength. Neuro: Pt awake and alert. Pupils equal. Speech clear and appropriate. Patient is more conversive and appears more sharp and thought process. Sensation intact. Face symmetric. Pupils 3 mm bilaterally reactive bilaterally. (Aj Kelly) Lab, Micro, Other Results Last Impressions Head CT 01/27/17 0600 Signed Impressions: Service Date/Time: Friday, January 27, 2017 05:17 - CONCLUSION: 2 subdural drains are in good position. No new hemorrhage is noted. The previously seen hemorrhage is markedly reduced. No shift or evidence of significant edema . Gurmeet Isaacs MD Chest X-Ray 01/22/17 1705 Signed Impressions: Service Date/Time: Sunday, January 22, 2017 17:14 - CONCLUSION: Hypoinflation with minimal bibasilar atelectatic changes. Maury Pizano MD (Aj Kelly) Medical Decision Making Impression and Plan A: 76 y/o M with bilateral subdural hemorrhage, a mixture of chronic and acute hemorrhage. Hx of Xarelto use. This has been on hold since admission. Right parietal rachael hole placement for subdural hemorrhage evacuation; left parietal bur hole placement for subdural hemorrhage evacuation on 01/26/17. P: Discharge pt home. Orders/instructions written. Follow up in 1 week for staple removal. (Aj Kelly) Attending Statement The exam, history, and the medical decision-making described in the above note were completed with the assistance of the mid-level provider. I reviewed and agree with the findings presented. I attest that I had a [id number] encounter with the patient on the same day, and personally performed and documented my assessment and findings in the medical record. (Henry Medina MD) Aj Kelly Jan 29, 2017 09:06 Henry Medina MD Jan 29, 2017 10:39
[2017-01-29] MEDS: SODIUM CHLORIDE 0.9% FLUSH 10 ML FLUSH IV FLUSH SCH (09:19)
[2017-01-29] MEDS: PANTOPRAZOLE SOD 40 MG DELAYED RELEASE TAB PO SCH (09:19)
[2017-01-29] MEDS: DOCUSATE SODIUM 50 MG/SENNA 8.6 MG TAB PO SCH (09:19)
[2017-01-29] MEDS: amLODIPine BESYLATE 5 MG TAB PO SCH (09:19)
[2017-01-29] MEDS: LISINOPRIL 20 MG TAB PO SCH (09:19)
[2017-01-29] MEDS ORDERED: LEVE500 PO (09:53)
[2017-01-29] MEDS ORDERED: NORC5TAB PO (09:53)
--- NOTE | 2017-01-29 09:58 | HHI.DS ---
Discharge Summary Admission Date Jan 22, 2017 at 6:59 pm Discharge Date: Jan 29, 2017 Admitting Diagnosis acute on chronic bilateral subdural hematoma (1) Subdural hematoma ICD Code: I62.00 - Nontraumatic subdural hemorrhage, unspecified (2) Thrombocytopenia ICD Code: D69.6 - Thrombocytopenia, unspecified (3) Leukocytosis ICD Code: D72.829 - Elevated white blood cell count, unspecified (4) Dehydration ICD Code: E86.0 - Dehydration (5) HTN (hypertension) ICD Code: I10 - Essential (primary) hypertension (6) DM (diabetes mellitus) ICD Code: E11.9 - Type 2 diabetes mellitus without complications Procedures Right parietal rachael hole placement for subdural hemorrhage evacuation; left parietal bur hole placement for subdural hemorrhage evacuation Brief History - From Admission This is a 76-year-old male with a PMH of HTN, DM, h/o CVA on Xarelto and CLL who was sent to the ER by PCP secondary to outpatient imaging showing bilateral Subdural Hematoma. Per , pt was recently started on antibiotics for Prostatitis, states Son is an ER physician and noted pt to be more confused today, therefore urged pt be seen by PCP. Reports chronic headache for several months, no nausea/vomiting or vision changes. On arrival, BP 136/78, HR 74, O2 sat 98% on RA, Afebrile. WBC 20.2. Platelets 144. GFR 58. BUN 28. INR 1.1. UA negative. CXR with hypoinflation. CT Head with acute on chronic spiral bilateral subdural hematomas, no midline shift or herniation. S/p eval by Dr. Akins w/ NxSx, hematomas amenable to drainage, however family would like to continue w/ conservative management at this time. CBC/BMP: 01/27/17 0507 01/27/17 0507 Significant Findings Laboratory Tests Test 01/26/17 11:54 01/27/17 05:07 White Blood Count 16.3 TH/MM3 (4.0-11.0) 15.3 TH/MM3 (4.0-11.0) Red Blood Count 4.33 MIL/MM3 (4.50-5.90) 4.06 MIL/MM3 (4.50-5.90) Hemoglobin 12.9 GM/DL (13.0-17.0) 12.0 GM/DL (13.0-17.0) Hematocrit 38.8 % (39.0-51.0) 36.5 % (39.0-51.0) Platelet Count 121 TH/MM3 (150-450) 119 TH/MM3 (150-450) Mean Platelet Volume 6.3 FL (7.0-11.0) 6.3 FL (7.0-11.0) Lymphocytes (%) (Auto) 62.6 % (9.0-44.0) 48.0 % (9.0-44.0) Lymphocytes # (Auto) 10.2 TH/MM3 (1.0-4.8) 7.3 TH/MM3 (1.0-4.8) Lymphocytes % 54 % (9-44) Random Glucose 176 MG/DL (74-106) 136 MG/DL (74-106) Calcium Level 8.2 MG/DL (8.5-10.1) 8.0 MG/DL (8.5-10.1) Estimat Glomerular Filtration Rate 81 ML/MIN (>89) 66 ML/MIN (>89) Monocytes # (Auto) 1.2 TH/MM3 (0-0.9) Neutrophils # (Manual) 8.3 TH/MM3 (1.8-7.7) Platelet Estimate LOW (NORMAL) Imaging Last Impressions Head CT 01/27/17 0600 Signed Impressions: Service Date/Time: Friday, January 27, 2017 05:17 - CONCLUSION: 2 subdural drains are in good position. No new hemorrhage is noted. The previously seen hemorrhage is markedly reduced. No shift or evidence of significant edema . Gurmeet Isaacs MD Chest X-Ray 01/22/17 1705 Signed Impressions: Service Date/Time: Sunday, January 22, 2017 17:14 - CONCLUSION: Hypoinflation with minimal bibasilar atelectatic changes. Maury Pizano MD PE at Discharge GENERAL: Alert, oriented 3, NAD. SKIN: Warm and dry. HEAD: Normocephalic. Bilateral LIANNA drain in place EYES: No scleral icterus. No injection or drainage. NECK: Supple, trachea midline. No JVD or lymphadenopathy. CARDIOVASCULAR: Regular rate and rhythm without murmurs, gallops, or rubs. RESPIRATORY: Breath sounds equal bilaterally. No accessory muscle use. GASTROINTESTINAL: Abdomen soft, non-tender, nondistended. MUSCULOSKELETAL: No cyanosis, or edema. Neurological: Awake, alert, oriented 3. Normal speech. No focal neurological deficits. Moves upper and lower extremities spontaneously. BACK: Nontender without obvious deformity. No CVA tenderness. Pt update on day of discharge Patient is doing well. No acute concerns. Wants to go home. Hospital Course Mr. Victor is a pleasant 76-year-old male with a history of hypertension, diabetes, CVA, CLL who was admitted to the hospital on 01/22/2017 due to headache and subsequent finding of bilateral subdural hemorrhage. Patient has been on Xarelto due to atrial fibrillation and stroke prevention. Neurosurgery has been following patient closely. Patient underwent surgical intervention on 01/26/2017. - Subdural hemorrhage, bilateral - Xarelto on hold, hematology following. - Bilateral parietal rachael hole placement for subdural hemorrhage evacuation on 01/26/2017. - LIANNA drain will likely be discontinued on 01/28/2017. - Continue Keppra 500mg Q12hrs. - Outpatient neurosurgery follow up in one week upon discharge. - Hypertension - continue lisinopril 20 mg daily. Will continue home med verapamil 120mg Qday. - Thrombocytopenia - platelet count 119K on 01/27/2017. - CLL with lymphocytosis - Asymptomatic. Outpatient follow up. - History of CVA - Patient may need anti-coagulation in future or possibly Aspirin/plavix for stroke prevention. - Continue Lipitor 20mg QHS. - Diabetes mellitus - continue sliding scale insulin. Goal blood sugar 140-180. - Levemir 5 units QHS. - Continue Metformin upon discharge. Full code. Ambulation. Pt Condition on Discharge: Stable Discharge Disposition: Disch w/ Home Health Serv Discharge Time: > 30 minutes Discharge Instructions DIET: Follow Instructions for: As Tolerated, No Restrictions Activities you can perform: Shower Only-No Bath Activities to Avoid: Lifting/Bending, Strenuous Activity, Bathing, Driving Follow up Referrals: Neurosurgery with Henry Medina MD New Medications: Hydrocodone-Acetaminophen ([place]) 5 Mg-325 Mg Tab 1 TAB PO Q6H PRN for PAIN, #20 TAB 0 Refills Levetiracetam (Keppra) 500 Mg Tab 500 MG PO Q12H for Seizure Control, #60 TAB Continued Medications: Allopurinol (Allopurinol) 300 Mg Tab 300 MG PO DAILY for Gout, #30 TAB 0 Refills Atorvastatin (Lipitor) 20 Mg Tab 20 MG PO HS for Cholesterol Management, #30 TAB 0 Refills Lisinopril (Lisinopril) 20 Mg Tab 20 MG PO DAILY, #30 TAB 0 Refills Metformin (Metformin) 1,000 Mg Tab 1000 MG PO BIDPC for Blood Sugar Management, #60 TAB 0 Refills Pioglitazone (Actos) 15 Mg Tab 15 MG PO DAILY for Blood Sugar Management, #30 TAB 0 Refills Verapamil (Verapamil) 120 Mg Tab 120 MG PO DAILY, #60 TAB 0 Refills Discontinued Medications: Acetaminophen-Codeine (Acetaminophen-Codeine) 300-15 mg Tab 1-2 TAB PO Q6H PRN for PAIN, TAB 0 Refills Rivaroxaban (Xarelto) 20 Mg Tab 20 MG PO DAILY for Blood Clot Prevention, TAB 0 Refills Huseyin Quiros DO Jan 29, 2017 9:58 am
[2017-01-29] MEDS ORDERED: BATH/SHOWER SEA1 MIS (09:59)
--- NOTE | 2017-01-29 10:00 | HHI.FF ---
Face to Face Verification Diagnosis: (1) Subdural hematoma (2) HTN (hypertension) (3) DM (diabetes mellitus) Occupational Therapy Order: Evaluate and Treat, Improve ADL, Gross motor coordination, Fine motor coordination Home Health Nursing Order: Signs/symptoms of disease process Nursing assessment with vital signs I have seen patient Jj Victor on 01/29/17. My clinical findings support the need for the requested home health care services because: Deconditioned w/ increased weakness Need for psychosocial assistance High risk of falls Infection w/ risk of complications I certify that my clinical findings support that this patient is homebound because: Post-op weakness Unsteady gait/balance Unsafe to leave home unassisted Unable to use public transportation Huseyin Quiros DO Jan 29, 2017 10:00 am
--- NOTE | 2017-01-29 10:33 | HHI.FF ---
Face to Face Verification Diagnosis: (1) Subdural hematoma Physical Therapy Order: Evaluate and Treat, Improve ambulation, Strength and gait training Home Health Nursing Order: Nursing assessment with vital signs I have seen patient Jj Victor on 01/29/17. My clinical findings support the need for the requested home health care services because: Deconditioned w/ increased weakness High risk of falls I certify that my clinical findings support that this patient is homebound because: Unsteady gait/balance Unable to use public transportation Aj Kelly Jan 29, 2017 10:33 am
== END 2017-01-29 11:00 | disposition home or self-care (01) | DRG 26 ==
LOC: NEPC 16:18 → NEDA 18:59 → NEDH 23:01 → N03B 23:45 → N05A 01-24 16:40 → N03B 01-26 10:07 → N03A 01-26 13:00
PROVIDERS: ADMIT Hospitalist; ATTEND Hospitalist
PROC: 00C43ZZ Extirpation of Matter from Intracranial Subdural Space, Percutaneous Approach (ICD-10-PCS; 2017-01-26)
PROC: 00C43ZZ Extirpation of Matter from Intracranial Subdural Space, Percutaneous Approach (ICD-10-PCS; principal; 2017-01-26 09:10)
DX: I62.01 Nontraumatic acute subdural hemorrhage (principal); C91.10 Chronic lymphocytic leukemia of B-cell type not having achieved remission; I11.9 Hypertensive heart disease without heart failure; D69.6 Thrombocytopenia, unspecified; E11.9 Type 2 diabetes mellitus without complications; E86.0 Dehydration; I48.91 Unspecified atrial fibrillation; E78.5 Hyperlipidemia, unspecified; M10.9 Gout, unspecified; H91.90 Unspecified hearing loss, unspecified ear; I62.03 Nontraumatic chronic subdural hemorrhage; I49.3 Ventricular premature depolarization; N40.0 Benign prostatic hyperplasia without lower urinary tract symptoms; N41.9 Inflammatory disease of prostate, unspecified; Z79.01 Long term (current) use of anticoagulants; Z79.4 Long term (current) use of insulin; Z79.899 Other long term (current) drug therapy; Z86.73 Personal history of transient ischemic attack (TIA), and cerebral infarction without residual deficits; Z86.711 Personal history of pulmonary embolism; Z86.718 Personal history of other venous thrombosis and embolism; Z98.1 Arthrodesis status
CPT/HCPCS: 36430; 70450; 71010; 80048; 80053; 81001; 82948; 83735; 84484; 85007; 85027; 85610; 85730; 86850; 86900; 86901; 86927; 87641; 90686; 93005; 94150; 96374; J0360; J0690; J1100; J1580; J1815; J2150; J2270; J2370; J2405; J2710; J3010; J3370; J3480; J7030; J7050; P9017; Q2038